=== PATIENT | male | born 1955 | race Caucasian/White ===

== ENCOUNTER 2023-12-23 08:43 | Outpatient (AMB) | payer BC, SELFPAY ==
--- NOTE | 2023-12-23 08:53 | MHC.OFFWIV ---
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 Reports Ankle swelling and Pain, but the swelling started this morning. PFSH Social History Patient Tobacco Use Status: Current everyday Tobacco user Review of Systems Const All systems reviewed & are unremarkable except as noted in HPI and below Physical Exam Vital Signs: Last Vital Signs Temp 98.0 F 12/23/23 08:57 Pulse 60 12/23/23 08:57 BP 140/82 H 12/23/23 08:57 Pulse Ox 98 12/23/23 08:57 BMI result Body Mass Index 28.5 Const General: comfortable and no acute distress Orientation/consciousness: patient oriented x3 Neuro Other: Walks with a slight limp. General: patient oriented x3, gait normal and moves all extremities Extrem Right lower extremity: edema and ankle Details: tenderness, swelling Details: diffusely, abnormal ROM Details: pain with active ROM and pain with passive ROM, laceration (Scrapped up right sheen) and ecchymosis Left lower extremity: normal to inspection and full ROM Psych Speech and movement: Normal speech and movement present Assessment & Plan Assessment & Plan (1) Right ankle injury: Code(s): S99.911A - Unspecified injury of right ankle, initial encounter Qualifiers: Encounter type: initial encounter Qualified Code(s): S99.911A - Unspecified injury of right ankle, initial encounter Plan: - Xray to r/o Fx - Air Cast right ankle - IceHot - Acetaminophen for relief (2) Cellulitis of skin: Code(s): L03.90 - Cellulitis, unspecified Plan: - Keflex for 7 days. Orders: Orders XR ankle RT min 3V Today S99.911A - Unspecified injury of right ankle, initial encounter Medications: New cephalexin 500 mg PO BID 7 days 14 caps 0RF L03.90 - Cellulitis, unspecified Coding Level of Care Code New Pt Level 4 (00216) Diagnoses Injury of right ankle, initial encounter S99.911A Encounter type: initial encounter Cellulitis of skin L03.90 Time Spent (min) 20
[2023-12-23 08:57] VITALS: BP 140/82; PULSE 60; TEMP 36.7; O2SAT 98; BMI 28.5
== END 2023-12-23 10:11 | disposition home or self-care (01) ==
PROVIDERS: Visit Provider Nurse Practitioner Family
DX: S99.911A Unspecified injury of right ankle, initial encounter (principal); L03.90 Cellulitis, unspecified
CPT/HCPCS: 99204

== ENCOUNTER 2023-12-23 09:31 | Outpatient (REF) | payer BC, SELFPAY ==
--- NOTE | ~2023-12-23 | XR_ITS ---
EXAMINATION: XR ANKLE, RIGHT CLINICAL INFORMATION: Right ankle injury. COMPARISON: None available. TECHNIQUE: AP, lateral, and mortise views of the right ankle. FINDINGS: Alignment is anatomic. No displaced fracture or dislocation. Ankle mortise is maintained. The talar dome is intact. Small plantar calcaneal spur. There is mild diffuse soft tissue swelling and edema. XR/XR ankle RT min 3V IMPRESSION: No acute bony abnormality.
== END 2023-12-23 09:32 | disposition home or self-care (01) ==
LOC: HO.HMGCX 09:31
PROVIDERS: Visit Provider Nurse Practitioner Family
DX: S99.911A Unspecified injury of right ankle, initial encounter (principal)
CPT/HCPCS: 73610

== ENCOUNTER 2023-12-27 08:49 | Outpatient (AMB) | payer BC, SELFPAY ==
--- NOTE | 2023-12-27 09:54 | AM.OFFWIN_ITS ---
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 Patient was seen in this walk-in clinic for similar and mint, was given cephalexin for cellulitis of the right ware. Patient also had right ankle x-ray which demonstrated no acute abnormalities. Patient presents today with right foot and ankle pain. Also has swelling of his right foot and ankle. He reports the swelling goes away at night and in the morning, returns when he gets up to walk around. The scrape on his right ware has erythema with no drainage. Patient denies tingling or numbness. Patient on initial exam also had elevated blood pressure. Blood pressure was retaken after 15 minutes of rest, results came back hypertensive 155/96. Patient denies symptoms of headache, dizziness, chest pain, shortness a breath. Patient does not have PCP. Patient is declining hypertensive medication at this time. [facility] Social History Patient Tobacco Use Status: Current everyday Tobacco user Review of Systems Const All systems reviewed & are unremarkable except as noted in HPI and below Denies chills and Denies fever(s) Physical Exam Vital Signs: Last Vital Signs Temp 97.2 F 12/27/23 09:55 Pulse 64 12/27/23 09:55 BP 190/90 H 12/27/23 09:55 Pulse Ox 97 12/27/23 09:55 Oxygen Delivery Method Room Air 12/27/23 09:55 BMI result Body Mass Index 28.3 Patient should continue take blood pressure measurements at home. Patient is declining blood pressure medication. Assessment & Plan Assessment & Plan (1) Cellulitis: Comment: Patient should continue taking cephalexin at home. Has been instructed to rest the extremity, rays extremity. 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 Has been educated on signs of worsening symptoms and when to report to the walk-in or when to present to the ED. Code(s): L03.90 - Cellulitis, unspecified Qualifiers: Site of cellulitis: extremity Site of cellulitis of extremity: lower extremity Laterality: right Qualified Code(s): L03.115 - Cellulitis of right lower limb Plan: Patient will also continue to measure blood pressure at home. He has been educated on signs of worsening symptoms. When to return to the walk-in or when to present to the ED Coding Level of Care Code Est Pt Level 3 (58421) Diagnoses Cellulitis of right lower extremity L03.115 Site of cellulitis: extremity Site of cellulitis of extremity: lower extremity Laterality: right Time Spent (min) 28
[2023-12-27 09:55] VITALS: BP 190/90; PULSE 64; TEMP 36.2; O2SAT 97; BMI 28.3
[2023-12-27 10:32] VITALS: BP 155/96
== END 2023-12-27 10:56 | disposition home or self-care (01) ==
PROVIDERS: Visit Provider Nurse Practitioner Primary Care
DX: L03.115 Cellulitis of right lower limb (principal)
CPT/HCPCS: 99213

== ENCOUNTER 2023-12-30 15:12 | Outpatient (AMB) | payer BC, SELFPAY ==
--- NOTE | 2023-12-30 15:22 | MHC.OFFWIV ---
Intake Vital Signs 12/30/23 15:25 Height 6 ft Weight 209 lb BMI 28.3 BP 170/82 H Blood Pressure Location Rt brachial Position Sitting Pulse 66 Pulse Source Pulse Oximeter Temp 97.7 F Temp Source Oral Pulse Oximetry (%) 97 Oxygen Delivery Method Room Air Intake Visit Reasons: Rt ankle swollen and red Intake Note: pt is here for right ankle swollen and red, completed antibiotics but still infected Patient Tobacco Use Status: Current everyday Tobacco user Allergies meperidine [From Demerol] Allergy (Mild, Verified 12/30/23 15:26) Stomach Upset Do you need a note to return to daycare/school/sports/work: No HPI HPI Comments History of Present Illness Details Patient presents for re-eval He was initially seen on 12/22 after a fall and obtained a R ankle xray which was negative At that time he was given Keflex for a would to R ware He did not having improvement so he was reevluated on 12/26 He comes today with slight improvment but concern for continual infection No fever or chills Elevation helps Keflex did not resolve it; finished whole script No numbness, tingling or weakness + edema and redness Redness improved around superior cut but continual redness to lower leg and foot No other complaints PFSH Social History Patient Tobacco Use Status: Current everyday Tobacco user Review of Systems Const Denies chills and Denies fever(s) Card Denies chest pain, Reports pedal edema, Reports leg edema and Denies dyspnea Resp Denies cough and Denies dyspnea Musc Reports joint swelling, Denies numbness and Denies tingling Skin/Breast Reports erythema Neuro Denies numbness and Denies tingling Physical Exam Vital Signs: Last Vital Signs Pulse 66 12/30/23 15:25 BP 170/82 H 12/30/23 15:25 Pulse Ox 97 12/30/23 15:25 Oxygen Delivery Method Room Air 12/30/23 15:25 BMI result Body Mass Index 28.3 General: Non-toxic, NAD. Speaking full sentences. Skin: Warm dry throughout RLE: + has scabbed vertical linear wound running along anterior/medial ware from mid ware distally to anterior ankle + surrounding erythema to mid would extending distally all the way to digits + edema RLE from mid ware, ankle and into dorsum of foot Eye: EOMI Respiratory: No respiratory distress Cardiac: RRR. DP. pulse intact. No RLE calf tenderness MSK: + full ROM R ankle. No tenderness to palpation medial/lateral malleoli RLE. Slight discomfort to palpation dorsal aspect foot over edema. Neurology: A/O. No aphasia or facial droop. Gait without abnormality Psych: Good mood and affect Assessment & Plan Assessment & Plan (1) Cellulitis of leg, right: Code(s): L03.115 - Cellulitis of right lower limb Plan: Patient seen and evaluated. Area of erythema traced Doxycycline for mrsa coverage Discussed sun exposure s/e of med Discussed elevation No vascular deficit on exam Reviewed previous xray result Will return Tuesday for recheck Discussd ER s/s that warrant eval. Patient gave verbal understanding and had no additional questions or concerns at time of discharge All questions answered Medications: New doxycycline hyclate 100 mg PO BID 14 caps 0RF Coding Level of Care Code Est Pt Level 3 (23447) Diagnoses Cellulitis of leg, right L03.115
[2023-12-30 15:25] VITALS: BP 170/82; PULSE 66; TEMP 36.5; O2SAT 97; BMI 28.3
== END 2023-12-30 16:44 | disposition home or self-care (01) ==
PROVIDERS: Visit Provider Physician Assistant
DX: L03.115 Cellulitis of right lower limb (principal)
CPT/HCPCS: 99213

== ENCOUNTER 2024-01-02 10:51 | Outpatient (AMB) | payer BC, SELFPAY ==
[2024-01-02 12:24] VITALS: BP 140/78; PULSE 62; TEMP 36.4; O2SAT 97; BMI 27.8
--- NOTE | 2024-01-02 12:24 | MHC.OFFWIV ---
Intake Vital Signs 01/02/24 12:24 Height 6 ft Weight 205 lb BMI 27.8 BP 140/78 H Blood Pressure Location Lt brachial Position Sitting Pulse 62 Pulse Source Pulse Oximeter Temp 97.5 F Temp Source Temporal Artery Scan Pulse Oximetry (%) 97 Oxygen Delivery Method Room Air Intake Visit Reasons: EP RT Ankle swollen/redness F/U Intake Note: pt is here today for ankle swollen and redness started 1 week ago Patient Tobacco Use Status: Current everyday Tobacco user Allergies meperidine [From Demerol] Allergy (Mild, Verified 01/02/24 12:27) Stomach Upset Do you need a note to return to daycare/school/sports/work: Yes HPI EP RT Ankle swollen/redness F/U HPI Details 68-year-old male presents to the office for a sick visit. Patient comes for an evaluation of his right leg. 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 Patient was seen here in started on antibiotics and anti-inflammatories. PFSH Social History Patient Tobacco Use Status: Current everyday Tobacco user Physical Exam Vital Signs: Last Vital Signs Temp 97.5 F 01/02/24 12:24 Pulse 62 01/02/24 12:24 BP 140/78 H 01/02/24 12:24 Pulse Ox 97 01/02/24 12:24 Oxygen Delivery Method Room Air 01/02/24 12:24 BMI result Body Mass Index 27.8 Extrem Other: Right leg: Compared to the previous office visit, erythema has reduced in size. Wound he is healing with black eschar the wound. Assessment & Plan Assessment & Plan (1) Cellulitis of leg, right: Code(s): L03.115 - Cellulitis of right lower limb Plan: Continue the current course of antibiotics and anti-inflammatories. Reassurance. Coding Level of Care Code Est Pt Level 3 (11882) Diagnoses Cellulitis of leg, right L03.115
== END 2024-01-02 13:06 | disposition home or self-care (01) ==
PROVIDERS: Visit Provider Internal Medicine
DX: L03.115 Cellulitis of right lower limb (principal)
CPT/HCPCS: 99213

== ENCOUNTER 2024-01-04 11:22 | Emergency (ER) | payer BC, SELFPAY ==
--- NOTE | ~2024-01-04 | US_ITS ---
EXAMINATION: US VENOUS ULTRASOUND WITH DOPPLER LOWER EXTREMITY, RIGHT CLINICAL INFORMATION: Edema and pain. COMPARISON: None available. TECHNIQUE: Ultrasound of the deep veins is performed from the hip to the calf with compression sonography and color and pulse Doppler assessment. Spectral analysis with color-flow imaging is performed. FINDINGS: There is normal venous compression and respiratory variation and augmented flow. The visualized common femoral vein, superficial femoral vein, profunda femoral vein, popliteal vein, and the trifurcation region shows no evidence of deep venous thrombosis. There is no significant popliteal fossa cyst. If the patient's symptoms persist, followup ultrasound in 5 days 7 days might be of value to exclude proximal propagation from a non-visualized calf vein. US/US venous duplex LE RT IMPRESSION: No DVT demonstrated in the right lower extremity.
[2024-01-04 11:38] VITALS: BP 211/96; PULSE 67; RESP 18; TEMP 36.6; O2SAT 98; BMI 27.8
--- NOTE | 2024-01-04 11:38 | ED_ITS ---
HPI - General Adult General Chief complaint: Wound/Laceration Stated complaint: leg infection, antibiotics not working Time Seen by Provider: 01/04/24 14:40 Source: patient Mode of arrival: ambulatory Limitations: no limitations History of Present Illness HPI narrative: 68-year-old male otherwise healthy had initial fall on the 22 of December approximately 12 days patient was started on Keflex for concern for infection redness has continued to get worse he followed up and was started on doxycycline for the outpatient note when he was seen 2 days ago the erythema had improved Related Data Previous Rx's ?Medication ?Instructions ?Recorded doxycycline hyclate 100 mg capsule 100 mg PO BID #14 caps 12/30/23 Allergies Allergy/AdvReac Type Severity Reaction Status Date / Time meperidine [From Demerol] Allergy Mild Stomach Verified 01/04/24 11:42 Upset PMFSH Social History Social History Patient Tobacco Use Status: Current everyday Tobacco user Physical Exam ED Vital Signs: Vital Signs - 24 hr 01/04/24 11:38 Temperature 98 F Pulse Rate 67 Respiratory Rate 18 Blood Pressure 211/96 H Pulse Oximetry 98 Oxygen Delivery Method Room Air BMI result Body Mass Index 27.8 Course Course Course Narrative: This is a rapid medical exam performed by Anirudh Barnett NP: Additional HPI, ROS, PE not included below will be deferred to primary provider. Patient is a 68-year-old male presenting to the ED with complaint of right lower leg pain, redness, and swelling for the past 3 weeks. Completed a course of keflex with little improvement, currently on doxycycline, 2 days left. Denies fevers. Intermittent foot swelling. Had ankle xrays which he states were negative. Large scab to anterior RLL, erythema, warmth. BP elevated in triage. Plan: labs, US Medical Decision Making Medical Decision Making MDM Narrative: Patient is feeling normal labs ultrasound was done patient is on DVT patient has only been on the doxycycline for 2 days I shared decision-making with the patient plus-minus of admission versus going home patient opted to try and go home. Differential Diagnosis Differential Diagnoses: The differential diagnosis associated with the presentation includes Cellulitis infection sepsis Consult Healthcare Provider Management of the patient was discussed with: Hospitalist Lab Data MDM Lab Attestation statement: I reviewed the patient's lab results. 01/04/24 11:55 01/04/24 11:55 Labs: Lab Results 01/04/24 Range/Units 11:55 WBC 8.2 (4.8-10.8) X10*3/uL RBC 5.26 (4.60-5.80) X10*6/uL Hgb 15.6 (14.0-18.0) g/dl Hct 46.2 (42.0-52.0) % MCV 87.8 (80.0-98.0) fL MCH 29.7 (27.0-33.0) pg MCHC 33.8 (31.0-36.0) g/dl RDW 13.6 (11.0-16.0) % Plt Count 240 (160-400) X10*3/uL MPV 10.5 (9.4-12.4) fL Immature Gran % (Auto) 0.4 (0.0-0.4) % Neut % (Auto) 64.4 (45-73) % Lymph % (Auto) 24.7 (20-40) % [place] % (Auto) 8.6 (2-11) % Eos % (Auto) 1.0 (0-4) % Baso % (Auto) 0.9 (0-2) % Lymph # (Auto) 2.0 (1.2-4.9) X10*3/uL [place] # (Auto) 0.7 (0.1-1.2) X10*3/uL Eos # (Auto) 0.1 (0.0-0.4) X10*3/uL Baso # (Auto) 0.1 (0.0-0.2) X10*3/uL Abs Immat Gran (auto) 0.03 (0.00-0.03) X10*3/uL Absolute Neuts (auto) 5.3 (2.0-8.3) x10*3/uL Absolute Nucleated RBC 0.000 (0.0-0.012) X10*3/uL Nucleated RBC % (auto) 0.0 (0.0-0.2) /100WBC ESR 2 (0-15) MM/HR Sodium 141 (135-145) mmol/L Potassium 4.3 (3.3-5.1) mmol/L Chloride 106 (96-108) mmol/L Carbon Dioxide 27 (22-29) mmol/L Anion Gap 12 (12-20) BUN 21 H (9-16) mg/dL Creatinine 0.86 (0.5-1.4) mg/dL Estim Creat Clear Calc 91.4 Estimated GFR > 60 Random Glucose 97 (60-115) mg/dL Calcium 9.4 (8.4-10.2) mg/dL Total Bilirubin 0.4 (0.0-1.0) mg/dL AST 16 (5-37) U/L ALT 17 (0-40) U/L Alkaline Phosphatase 106 (39-117) U/L C-Reactive Protein 0.41 (< or = 0.50) mg/dL Total Protein 7.1 (6.5-8.0) g/dL Albumin 4.2 (3.5-5.0) g/dL Independent Interpretation I performed an independent interpretation of an: Ultrasound Radiology Impression Discussion of test interpretation with radiology: I have reviewed the radiologist's reading. External Record Review External record reviewed: Inpatient record, Office record and Outpatient record Prescription Management I considered prescription management with: Antibiotic Discharge Plan Discharge Clinical Impression: Cellulitis of leg, right, Edema leg Patient Disposition: Home, Self-Care Instructions: Cellulitis (DC), Leg Edema (ED) Additional Instructions: You were seen today in the emergency department for right leg swelling and healing infection. You had labs and ultrasound done he do not have a blood clot your labs do not show any signs of sepsis. Please try to use tighter socks or compression stockings as well as elevating the leg and doing leg exercises we talked about to decrease swelling. If you have any other concerns worsening redness streaking please return to emergency department. Prescriptions: No Action doxycycline hyclate 100 mg capsule 100 mg PO BID Qty: 14 0RF Stand Alone Forms: Work/School Release Print Language: Welsh
[2024-01-04 11:59] LABS: MANUAL DIFF FLAG NO
[2024-01-04 12:00] LABS: Basophils Absolute Auto 0.1 X10*3/uL (0.0-0.2); Basophils Percent Auto 0.9 % (0-2); Eosinophils Absolute Auto 0.1 X10*3/uL (0.0-0.4); Hematocrit 46.2 % (42.0-52.0); Hemoglobin 15.6 g/dl (14.0-18.0); Imm Gran Abs Auto 0.03 X10*3/uL (0.00-0.03); Imm Gran Pct Auto 0.4 % (0.0-0.4); Lymphocytes Percent Auto 24.7 % (20-40); Mean Corpuscular HGB Conc 33.8 g/dl (31.0-36.0); Mean Corpuscular Hemoglobin 29.7 pg (27.0-33.0); Mean Corpuscular Volume 87.8 fL (80.0-98.0); Mean Platelet Volume 10.5 fL (9.4-12.4); Monocytes Absolute Auto 0.7 X10*3/uL (0.1-1.2); Monocytes Percent Auto 8.6 % (2-11); Neutrophils Absolute Auto 5.3 x10*3/uL (2.0-8.3); Neutrophils Percent Auto 64.4 % (45-73); Platelet Count 240 X10*3/uL (160-400); Red Blood Count 5.26 X10*6/uL (4.60-5.80); Red Cell Distribution Width 13.6 % (11.0-16.0); White Blood Count 8.2 X10*3/uL (4.8-10.8)
[2024-01-04 12:12] LABS: Alanine Aminotransferase 17 U/L (0-40); Albumin Level 4.2 g/dL (3.5-5.0); Alkaline Phosphatase 106 U/L (39-117); Anion Gap 12 (12-20); Aspartate Amino Transferase 16 U/L (5-37); Bilirubin Total 0.4 mg/dL (0.0-1.0); Blood Urea Nitrogen 21 mg/dL (9-16); C Reactive Protein 0.41 mg/dL (< or = 0.50); Calcium 9.4 mg/dL (8.4-10.2); Carbon Dioxide 27 mmol/L (22-29); Chloride 106 mmol/L (96-108); Creatinine Clr Calc Pharmacy 91.4; Estimated Glomerular Filt Rate > 60; Glucose Random 97 mg/dL (60-115); Potassium 4.3 mmol/L (3.3-5.1); Sodium 141 mmol/L (135-145); Total Protein 7.1 g/dL (6.5-8.0)
[2024-01-04 12:40] LABS: Erythrocyte Sedimentation Rate 2 MM/HR (0-15)
[2024-01-04 15:16] VITALS: BP 216/98; PULSE 62; RESP 18; TEMP 36.8; O2SAT 97
== END 2024-01-04 15:16 | disposition home or self-care (01) ==
PROVIDERS: Registered Nurse Emergency; Emergency Provider Student in an Organized Health Care Education/Training Program
DX: L03.115 Cellulitis of right lower limb (principal); R60.0 Localized edema; M79.604 Pain in right leg
CPT/HCPCS: 36415; 80053; 85025; 85652; 86140; 93971; 99282; 99283; 99284

== ENCOUNTER 2024-03-05 12:44 | Outpatient (AMB) | payer BC, SELFPAY ==
--- NOTE | 2024-03-05 13:42 | AM.OFFWIN_ITS ---
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 He notes he suffered COVID infection 2 weeks ago which has since recovered from but he did have significant cough and congestion with illness. He notes the blockage she has been since then. Denies other symptoms such as sore throat difficulty swallowing or ear pain. PFSH Social History Patient Tobacco Use Status: Current everyday Tobacco user Review of Systems Const Reports as per HPI and Reports no additional complaints ENT Reports no additional complaints and Reports as per HPI Card Reports as per HPI and Reports no additional complaints Resp Reports as per HPI and Reports no additional complaints Neuro Reports no additional complaints and Reports as per HPI Physical Exam Vital Signs: Last Vital Signs Temp 98.2 F 03/05/24 13:43 Pulse 64 03/05/24 13:43 BP 126/82 03/05/24 13:43 Pulse Ox 98 03/05/24 13:43 Oxygen Delivery Method Room Air 03/05/24 13:43 BMI result Body Mass Index 27.8 Const General: cooperative, comfortable and no acute distress Orientation/consciousness: patient oriented x3 HEENT Head: Yes normal to inspection Ears: Abnormal EAC present cerumen impaction on the right Neck Neck: Yes normal visual inspection, Yes full ROM and Yes no lymphadenopathy Resp Effort & Inspection: normal respiratory effort Auscultation: clear to auscultation bilaterally Cardio Rate: regular rate Rhythm: regular rhythm Heart sounds: S1 normal heart sound present and S2 normal heart sound present Neuro General: patient oriented x3 Office Procedures Cerumen Removal Details: Performed by MARCOS Trevizo. I personally did follow-up exam. From which ear canal was the cerumen removed: right Removal: irrigation Notes: patient tolerated procedure well [id number] Irrigation/Lavage Assessment & Plan Assessment & Plan (1) Cerumen impaction: Code(s): H61.20 - Impacted cerumen, unspecified ear Qualifiers: Laterality: right Qualified Code(s): H61.21 - Impacted cerumen, right ear Plan: Cerumen successfully removed via lavage. There is some irritation of the canal skin postprocedure. Patient notes restored hearing and feeling his ears on block now. Return to clinic any concern. Coding Level of Care Code Est Pt Level 3 (44027) Diagnoses Impacted cerumen of right ear H61.21 Laterality: right CPT Codes Office Procedure - CPT: 63836-Hpi Irrigation/Lavage ([id number])
[2024-03-05 13:43] VITALS: BP 126/82; PULSE 64; TEMP 36.8; O2SAT 98; BMI 27.8
== END 2024-03-05 15:03 | disposition home or self-care (01) ==
PROVIDERS: Visit Provider Physician Assistant
DX: H61.21 Impacted cerumen, right ear (principal)
CPT/HCPCS: 69209; 99213

== ENCOUNTER 2025-05-17 07:11 | Outpatient (AMB) | payer BC, SELFPAY ==
--- NOTE | 2025-05-17 07:12 | AM.OFFWIN_ITS ---
Intake Vital Signs 05/17/25 07:14 Height 6 ft Weight 212 lb BMI 28.7 BP 190/80 H Blood Pressure Location Lt brachial Position Sitting Pulse 76 Pulse Source Pulse Oximeter Temp 98.6 F Temp Source Oral Pulse Oximetry (%) 96 Oxygen Delivery Method Room Air Intake Visit Reasons: EP-cough, running nose Intake Note: Pt is here today c/o cough and nasal congestion Patient Tobacco Use Status: Current everyday Tobacco user Allergies meperidine (From Demerol) Allergy (Mild, Verified 05/17/25 07:14) Stomach Upset HPI HPI Comments History of Present Illness Details History - The patient is a 70-year-old male pres enting with symptoms of a cough and runny nose for 5 days. - The patient reports a history of smoki ng for 50 years and experiences wheezing, particularly in cold air. - The patient experienced chills and col d-like symptoms, leading to 3 missed days of work. - He denies fever but reports wheezing a nd a cough that worsens in cold air. - Denies ear pain or sinus pain. - He has not been diagnosed with asthma or COPD formally but acknowledges the likelihood of COPD due to his smoking history. Does not see a doctor regularly. - The patient has a history of elevated blood pressure, with a recent measurement of 190/80 mmHg. - He denies headaches, chest pain or diz ziness. - He has not been under regular medical care for 15 years and does not take any antihypertensive medications. Review of Systems - General: Reports chills, denies fever. - Respiratory: Reports wheezing and coug h, denies dyspnea. - Cardiovascular: Denies chest pain, diz ziness, or lightheadedness. - Neurological: Denies headaches. All systems reviewed and are unremarkable except as noted in HPI Physical Exam General: Cooperative, healthy appearing, comfortable and no acute distress Orientation/consciousness: Patient oriented x3 Limitations: No limitations Head: Normal to inspection Ears: Hearing grossly normal bilaterally, external ears normal, cerumen bilaterally, TMs visible and normal bilat Nose: Normal external nose present, Normal nares present and No nasal discharge present Face and sinus: Normal facial exam and Yes sinuses nontender Mouth: Normal oral and palatal mucosa present and moist mucous membranes Throat: Yes tonsils normal, Yes uvula midline. Posterior oropharynx erythema, no exudates Eyes: Appearance normal, both eyes and all related structures Neck: Normal visual inspection, full ROM Respiratory: exp wheezes throughout. Normal respiratory effort, able to speak in complete sentences, actively coughing, no respiratory distress, not tachypneic, no tripod positioning and no use of accessory muscles. Wheezing present Cardiovascular: Regular rate and rhythm. Normal S1 and S2 Skin: No rashes or lesions noted Neuro: Patient oriented x3 Extremities: Normal to inspection and Yes no clubbing, cyanosis or edema PFSH Social History Patient Tobacco Use Status: Current everyday Tobacco user Physical Exam Vital Signs: Last Vital Signs Temp 98.6 F 05/17/25 07:14 Pulse 76 05/17/25 07:14 BP 190/80 H 05/17/25 07:14 Pulse Ox 96 05/17/25 07:14 Oxygen Delivery Method Room Air 05/17/25 07:14 BMI result Body Mass Index 28.7 Assessment & Plan Assessment & Plan (1) Lower respiratory infection (e.g., bronchitis, pneumonia, pneumonitis, pulmonitis): Code(s): J22 - Unspecified acute lower respiratory infection Plan: Patient was informed and verbally consented to the use of an ambient scribe for clinic note documentation during this visit. - BP extremely elevated repeat was 210/100, asymptomatic, did recommend he go to the ED to be started on medications but he refused, signed AMA form. HE will make an appt with [facility] PCP, sent message to her to move appt up to [facility] once he makes it. - Pt well appearing and PE remarkable for exp wheezes throughout. - Sent viral panel - Prescribed an inhaler for use as needed for shortness of breath. - Initiated prednisone for five days to reduce inflammation and improve breathing. - Recommended symptomatic treatment with Mucinex and allergy medication. - Provided a work note for three days off due to illness. (2) Elevated blood pressure reading without diagnosis of hypertension: Code(s): R03.0 - Elevated blood-pressure reading, without diagnosis of hypertension Plan: - Advised to establish care with a primary care provider for management of hypertension. Messaged PCP he would like to see to ask for an appt [facility] as he refuses to go to the ED. Signed AMA form. - Discussed the importance of starting antihypertensive medication to prevent complications such as stroke. Advised he is at a VERY high risk for a stroke right now. He acknowledged this and still refused to go to the ED. Orders: Orders Resp Pathogen Panel - [facility] Today J06.9 - Acute upper respiratory infection, unspecified Coding Level of Care Code New Pt Level 4 (64205) Diagnoses Lower respiratory infection (e.g., bronchitis, pneumonia, pneumonitis, pulmonitis) J22 Elevated blood pressure reading without diagnosis of hypertension R03.0
[2025-05-17 07:14] VITALS: BP 190/80; PULSE 76; TEMP 37; O2SAT 96; BMI 28.7
== END 2025-05-17 07:47 | disposition home or self-care (01) ==
PROVIDERS: Visit Provider Physician Assistant
DX: J22 Unspecified acute lower respiratory infection (principal); R03.0 Elevated blood-pressure reading, without diagnosis of hypertension

== ENCOUNTER 2025-05-17 07:11 | Outpatient (REF) | payer BC, SELFPAY ==
[2025-05-17 15:50] LABS: Chlamydia pneumoniae PCR Not Detected (Not Detect.); Coronavirus 229E PCR Not Detected (Not Detect.); Coronavirus HKU1 PCR Not Detected (Not Detect.); Coronavirus NL63 PCR Not Detected (Not Detect.); Coronavirus OC43 PCR Not Detected (Not Detect.); RSV PCR Not Detected (Not Detect.); Rhino/Enterovirus PCR Detected (Not Detect.)
[2025-05-17 15:57] LABS: Influenza A H1 PCR Not Detected (Not Detect.); Influenza A H1-2009 PCR Not Detected (Not Detect.); Influenza A H3 PCR Not Detected (Not Detect.); SARS-CoV-2 PCR Not Detected (Not Detect.)
== END 2025-05-17 07:12 | disposition home or self-care (01) ==
LOC: HO.LAB 07:11
PROVIDERS: Physician Assistant
DX: J22 Unspecified acute lower respiratory infection (principal); R03.0 Elevated blood-pressure reading, without diagnosis of hypertension; F17.200 Nicotine dependence, unspecified, uncomplicated; R05.9 Cough, unspecified; R09.81 Nasal congestion; R09.89 Other specified symptoms and signs involving the circulatory and respiratory systems; Z53.29 Procedure and treatment not carried out because of patient's decision for other reasons
CPT/HCPCS: 87633

== ENCOUNTER 2025-05-21 11:27 | Inpatient (IN) | payer BC, SELFPAY ==
[2025-05-21] VITALS (7 sets, daily range): BP systolic 114–152; BP diastolic 61–116; PULSE 52–120; RESP 16–18; TEMP 36.6; O2SAT 93–98; BMI 28.6
--- NOTE | ~2025-05-21 | CT_ITS ---
EXAMINATION: CT CHEST ANGIOGRAPHY WITH IV CONTRAST INDICATION: new onset afib w/ RVR, chest pain COMPARISON: There are no prior studies available for comparison. TECHNIQUE: Helical CT scan of the chest was performed following administration of intravenous contrast (65 mL Omnipaque 350). The contrast bolus was timed to optimally opacify the pulmonary arteries. Thin sections were obtained through the pulmonary arteries. Coronal and sagittal reformatted images were generated. 3D/MIP reconstructed images are also obtained and reviewed. This CT exam was performed with one or more of the following dose reduction techniques: automated exposure control, adjustment of the mA and/or kV according to patient size, use of iterative reconstruction technique. DLP: 08 mGy-cm CHEST: THYROID: The thyroid gland is unremarkable. PULMONARY ARTERIES: No intraluminal filling defects are identified within the pulmonary arteries to suggest pulmonary emboli. Pulmonary arteries are upper normal in size, main pulmonary artery measuring 3 cm. LUNGS: There are scattered areas of bronchial wall thickening. No evidence of pneumonia or pulmonary edema. MEDIASTINUM: There is no mediastinal lymphadenopathy. RAND: There is no hilar lymphadenopathy. CARDIOVASCULATURE: Heart is slightly enlarged. There is no pericardial effusion. No evidence of right heart strain. The thoracic aorta is normal in caliber. DEGREE OF CORONARY CALCIFICATION: none PLEURA: There is no pleural effusion. No pneumothorax. MAIN AIRWAYS: The mainstem bronchi and proximal branches are patent. AXILLA: There is no axillary lymphadenopathy. UPPER ABDOMEN: No reflux of contrast into the liver. Mild diverticulosis of the colon. BONES AND SOFT TISSUES: Degenerative changes of the spine. CT/CT angio chest PE protocol IMPRESSION: No evidence of pulmonary emboli. Slightly enlarged heart. Scattered areas of mild bronchial wall thickening. No evidence of pneumonia or pulmonary edema. Electronically signed by: Gracia Dailey MD 05/21/2025 01:36 PM EDT
--- NOTE | 2025-05-21 11:32 | ECG_ITS ---
Test Reason : CP,IRREG HEARTBEAT Blood Pressure : */* mmHG Vent. Rate : 112 BPM Atrial Rate : * BPM P-R Int : * ms QRS Dur : 96 ms QT Int : 310 ms P-R-T Axes : * -23 53 degrees QTcB Int : 423 ms Atrial fibrillation with rapid ventricular response Minimal voltage criteria for LVH, may be normal variant ( [place] product ) Nonspecific ST abnormality Abnormal ECG No previous ECGs available Referred By: Generic ED Physician Electronically Signed By: ODILON JUNIOR MD
--- NOTE | 2025-05-21 11:41 | ED_ITS ---
HPI - Chest Pain General Chief Complaint: Chest Pain Stated Complaint: lt side chest/arm pain HR 160-210 Dilt given Time Seen by Provider: 05/21/25 11:33 Source: patient and EMS Mode of arrival: EMS Limitations: no limitations History of Present Illness ED Provider: Magda Mascorro PA-C HPI narrative: 70 with no significant medical history (does not go to doctor), active smoker who presents to the ER from home via EMS for evaluation of acute onset of left- sided chest pressure and left arm pain that woke him up out of sleep at 09:00 today. Patient states it initially started with left upper arm pain, he thought he slept wrong on his arm. When he got up he noticed he had pressure in the left side of his chest, 7/10, nonradiating. His symptoms worsened and he called 911. He denied any associated shortness of breath, diaphoresis, nausea, abdominal pain. EMS reports his heart rates were 180-220 in rapid AFib. An IV was established and he was given diltiazem 22.5 mg IV x1. His heart rates improved to the 120s. His blood pressure remained stable with systolics 110- 140. He was not hypoxic. He states he recently went to the urgent care clinic last week for nasal congestion, they prescribed him new inhalers for wheezing and they told him his blood pressure was high. He is not on blood pressure medication. He does not have a primary care physician. On arrival to the ER patient's heart rates are in the 120s, he is feeling better, no longer having arm pain. Mild chest pressure persists. MD complaint: other (Chest pressure, left arm pain) Onset (ago): minute(s) Timing of current episode: constant Prior episodes: No Onset: during rest Pain location: left chest Pain radiation: left arm Severity: moderate Pain scale (0-10): 7 Quality: heaviness Relieving factors: medication-other (aspirin and diltiazem) Exacerbating factors: nothing Context: recent illness Associated symptoms: cough Treatment prior to arrival: aspirin, oxygen and other (diltiazem) Risk Factors Coronary artery disease risk factors: smoking history and hypertension Related Data Previous Rx's ?Medication ?Instructions ?Recorded albuterol sulfate 90 mcg/actuation 2 puff inhalation Q 6H PRN 05/17/25 aerosol inhaler shortness of breath or wheez ing or cough #8.5 grams prednisone 50 mg tablet 50 mg PO QAM #5 tabs 5 Allergies Allergy/AdvReac Type Severity Reaction Status Date / Time meperidine (From Demerol) Allergy Mild Stomach Verified 05/21/25 11:40 Upset Review of Systems 2 Review of Systems: Yes all other systems are reviewed and are negative [facility] Social History Social History Patient Tobacco Use Status: Current everyday Tobacco user Smoked in Last 30 Days: Yes Use of substances other than those prescribed or required for medical reasons: No Advance Directives: No Advance Directives Information Provided: Yes Physical Exam 2 Exam: Exam: Appearance: Alert. Oriented X3. No acute distress. Head: normocephalic, atraumatic. Eyes: Pupils equal, round and reactive to light. ENT: Pharynx normal. No tonsillar swelling or exudate. Neck: Normal inspection. Neck supple. CVS: Irregularly irregular, rapid rate, heart rate 110. Pulses normal. Respiratory: No respiratory distress. Breath sounds with end expiratory wheezes, faint. Speaking in complete sentences Abdomen: Soft and nontender. +BS x4 Skin: Skin warm and dry. Normal skin color. Normal skin turgor. No rashes. Extremities: No lower extremity edema. No joint swelling. Negative Homans sign Neuro/psych: Oriented X 3. No motor deficit. No sensory deficit. CN II-XII intact. Normal speech and cognition. Vital Signs: Vital Signs: Last Vital Signs Temp 97.9 F 05/21/25 11:35 Pulse 100 05/21/25 14:21 Resp 16 05/21/25 14:21 BP 143/71 H 05/21/25 14:21 Pulse Ox 93 05/21/25 14:21 O2 Del Method Room Air 05/21/25 14:21 O2 Flow Rate 96 05/21/25 11:59 BMI result Body Mass Index 28.6 Medications Administered Discontinued Medications Generic Name Dose Route Start Last Admin Trade Name Freq PRN Reason Stop Dose Admin Lactated Ringer's 1,000 mls @ 999 mls/hr 05/21/25 11:45 05/21/25 12:55 Lr IV 05/21/25 12:45 Infused .Q1H1M GETACHEW Infusion Iohexol 100 ml 05/21/25 13:15 10/21/25 13:16 Iohexol 350 Mg/Ml 100 Ml Infus..Btl IV 05/21/25 13:16 65 ml ONCE ONE Administration Metoprolol Tartrate 25 mg 05/21/25 11:59 05/21/25 12:06 Metoprolol Tartrate 25 Mg Tablet PO 05/21/25 12:00 25 mg ONCE ONE Administration Protocol Medical Decision Making Medical Decision Making [facility] Narrative: 70 yo male presents to the ER for evaluation of left sided chest pressure and left arm pain that woke him up out of sleep. Heart rates as high as 220 per EMS. He was given diltiazem with improvement. No known cardiac history, he admits to not having any medical follow-up. He is an active smoker. On arrival to the ER he has heart rates 100-120, blood pressure is stable. Not hypoxic. He does have expiratory wheezes consistent with a likely underlying doses of COPD. Given his new onset of AFib he CTA was done to rule out PE, this showed a slightly enlarged heart, no pulmonary emboli, scattered areas of mild bronchial wall thickening without pneumonia or pulmonary edema. His proBNP was 400s. Troponin negative. He was given PO lopressor 25 mg and HR remained 90-110s. BP stable. HR up to 130s at times. additional PO lopressor and IV lopressor ordered. he is feeling better. given his presentation and lack of follow up in the community, will plan to admit for further management of new onset rapid afib. he is agreeable to admission. Dr. Guevara from Cardiology notified --> recommending cardizem drip, eliquis and NPO after midnight Differential Diagnosis Differential Diagnoses: The differential diagnosis associated with the presentation includes New onset rapid AFib, SVT, atrial tachyarrhythmia, pulmonary embolism, ACS Admission/Observation Consideration of admission/observation: Escalation of care including admission/observation considered Consult Healthcare Provider Management of the patient was discussed with: Hospitalist and Supervisor [employer] Dr. Guevara Cardiology Lab Data [facility] Lab Attestation statement: I reviewed the patient's lab results. 05/21/25 11:51 05/21/25 11:51 Labs: Lab Results 05/21/25 05/21/25 05/21/25 Range/Units 11:51 12:09 13:02 WBC 9.3 (4.8-10.8) X10*3/uL RBC 5.33 (4.60-5.80) X10*6/uL Hgb 15.3 (14.0-18.0) g/dl Hct 45.4 (42.0-52.0) % MCV 85.2 (80.0-98.0) fL MCH 28.7 (27.0-33.0) pg MCHC 33.7 (31.0-36.0) g/dl RDW 13.1 (11.0-16.0) % Plt Count 238 (160-400) X10*3/uL MPV 10.7 (9.4-12.4) fL Immature Gran % (Auto) 0.3 (0.0-0.4) % Neut % (Auto) 58.1 (45-73) % Lymph % (Auto) 30.1 (20-40) % [place] % (Auto) 9.1 (2-11) % Eos % (Auto) 1.9 (0-4) % Baso % (Auto) 0.5 (0-2) % Lymph # (Auto) 2.8 (1.2-4.9) X10*3/uL [place] # (Auto) 0.9 (0.1-1.2) X10*3/uL Eos # (Auto) 0.2 (0.0-0.4) X10*3/uL Baso # (Auto) 0.1 (0.0-0.2) X10*3/uL Abs Immat Gran (auto) 0.03 (0.00-0.03) X10*3/uL Absolute Neuts (auto) 5.4 (2.0-8.3) x10*3/uL Absolute Nucleated RBC 0.000 (0.0-0.012) X10*3/uL Nucleated RBC % (auto) 0.0 (0.0-0.2) /100WBC Sodium 142 (135-145) mmol/L Potassium 3.3 D (3.3-5.1) mmol/L Chloride 110 H (96-108) mmol/L Carbon Dioxide 25 (22-29) mmol/L Anion Gap 10 L (12-20) BUN 22 H (9-16) mg/dL Creatinine 0.82 (0.5-1.4) mg/dL Estim Creat Clear Calc 102.0 Estimated GFR > 60 Random Glucose 128 H (60-115) mg/dL Lactic Acid 1.3 (0.5-2.0) mmol/L Calcium 8.3 L D (8.4-10.2) mg/dL Magnesium 2.2 (1.6-2.6) mg/dL Total Bilirubin 0.3 (0.0-1.0) mg/dL Direct Bilirubin 0.1 (0.0-0.5) mg/dL AST 29 (5-37) U/L ALT 29 (0-40) U/L Alkaline Phosphatase 102 (39-117) U/L Troponin I High Sens 13.0 (<3.5-35.0) ng/L NT-Pro-B Natriuret Pep 468.5 H (<300) pg/mL Total Protein 6.6 (6.5-8.0) g/dL Albumin 4.1 (3.5-5.0) g/dL TSH 3.78 (0.32-4.0) uIU/mL Urine Color Yellow Urine Appearance Clear Urine pH 7.0 (5.0-9.0) Ur Specific [place] <= 1.005 (1.005-1.025) Urine Protein Negative (Neg-Trace) mg/dL Urine Glucose (UA) Negative (Negative) mg/dL Urine Ketones Negative (Negative) mg/dL Urine Blood Negative (Negative) Urine Nitrite Negative (Negative) Ur Leukocyte Esterase Negative (Negative) Urine Opiates Screen Not Detected (Not Detect) Ur Buprenorphine Scrn Not Detected (Not Detect) ng/mL Ur Oxycodone Screen Not Detected (Not Detect) ng/mL Urine Methadone Screen Not Detected (Not Detect) ng/mL Urine Fentanyl Screen Not Detected (Not Detect) Ur Barbiturates Screen Not Detected (Not Detect) Ur Phencyclidine Scrn Not Detected (Not Detect) Ur Amphetamines Screen Not Detected (Not Detect) U Benzodiazepines Scrn Not Detected (Not Detect) Urine Cocaine Screen Not Detected (Not Detect) U Marijuana (THC) Screen Not Detected (Not Detect) Ethyl Alcohol < 10 mg/dL COVID-19 (RIDDHI) Negative (Negative) COVID-19 Clin Com See Note Influenza Type A (TIAGO) Negative (Negative) Influenza Type B (TIAGO) Negative (Negative) Influenza A & B Note See Note Independent Interpretation I performed an independent interpretation of an: EKG and CT Scan Interpretation: EKG with atrial fibrillation with rapid ventricular response, ventricular rate 112 beats per minute, peaked T-waves in lead V3 and V4. No ST segment elevations or depressions CTA without any evidence of central PE, no pericardial effusion, no significant infiltrate Radiology Impression Discussion of test interpretation with radiology: I have reviewed the radiologist's reading. Independent Historian Clinical information obtained from an independent historian. History obtained from or confirmed by: EMS External Record Review External record reviewed: Prior outpatient labs Prescription Management I considered prescription management with: Other (anticoagulation, BB, CCB) Chronic Conditions Patient?s care impacted by: Hypertension (untreated) Social Determinants Patient?s care significantly limited by Social Determinants of Health including: Problems related to primary support group (no PCP) Critical Care Time Critical Care Time Critical Care Time: Yes Total Critical Care Time: 39 Attestation: I have personally provided critical care time exclusive of time spent on separately billable procedures. Time includes review of lab data, radiology results, discussion with consultants, and monitoring for potential decompensation. Intervention performed as documented. Discharge Plan Discharge Clinical Impression: New onset atrial fibrillation Patient Disposition: Admitted As Inpatient Print Language: Croatian
[2025-05-21] MEDS: Lactated Ringers 1,000 ML 999 ML IV (11:44)
[2025-05-21 11:58] LABS: MANUAL DIFF FLAG NO
[2025-05-21 12:16] LABS: Hematocrit 45.4 % (42.0-52.0); Hemoglobin 15.3 g/dl (14.0-18.0); Imm Gran Abs Auto 0.03 X10*3/uL (0.00-0.03); Imm Gran Pct Auto 0.3 % (0.0-0.4); Lymphocytes Absolute Auto 2.8 X10*3/uL (1.2-4.9); Mean Corpuscular HGB Conc 33.7 g/dl (31.0-36.0); Mean Corpuscular Hemoglobin 28.7 pg (27.0-33.0); Mean Corpuscular Volume 85.2 fL (80.0-98.0); NRBC Abs Auto 0.000 X10*3/uL (0.0-0.012); NRBC Pct Auto 0.0 /100WBC (0.0-0.2); Platelet Count 238 X10*3/uL (160-400); Red Blood Count 5.33 X10*6/uL (4.60-5.80); White Blood Count 9.3 X10*3/uL (4.8-10.8)
[2025-05-21 12:24] LABS: Troponin-I High Sensitivity 13.0 ng/L (<3.5-35.0)
[2025-05-21 12:26] LABS: NT Pro B Type Natriuretic Pept 468.5 pg/mL (<300)
[2025-05-21 12:28] LABS: Alanine Aminotransferase 29 U/L (0-40); Albumin Level 4.1 g/dL (3.5-5.0); Alkaline Phosphatase 102 U/L (39-117); Anion Gap 10 (12-20); Aspartate Amino Transferase 29 U/L (5-37); Blood Urea Nitrogen 22 mg/dL (9-16); Calcium 8.3 mg/dL (8.4-10.2); Carbon Dioxide 25 mmol/L (22-29); Chloride 110 mmol/L (96-108); Creatinine Clr Calc Pharmacy 102.0; Estimated Glomerular Filt Rate > 60; Magnesium 2.2 mg/dL (1.6-2.6); Potassium 3.3 mmol/L (3.3-5.1); Sodium 142 mmol/L (135-145); Total Protein 6.6 g/dL (6.5-8.0)
[2025-05-21 12:32] LABS: IDNOW Serial# 08D9AD1C; Influenza B2 Negative (Negative)
[2025-05-21 12:38] LABS: COVID-19 Test Negative (Negative); IDNOW Serial# 6674DD1D
[2025-05-21 13:10] LABS: Appearance Urine Clear; Glucose Urine UA Negative (Negative); PH 7.0 (5.0-9.0); Specific Gravity - Urine <= 1.005 (1.005-1.025)
[2025-05-21] MEDS: iohexoL 350 MG/ML 100 ML INFUS..BTL IV (13:16)
[2025-05-21 13:18] LABS: Cannabinoid Screen Urine Not Detected (Not Detect)
--- NOTE | 2025-05-21 14:46 | PM.IMHP ---
History of Present Illness Date of Service: 05/21/25 Chief Complaint: Left-sided chest pain Patient is a 70-year-old male with PMH rather unknown/undiagnosed as the patient has not visited a physician in the past 10 years(by choice) after 1 bad encounter. Patient reports having waking up last night with left-sided chest pain with radiation to the anterior chest in the left arm, persistent intermittent and like a heavy feeling in his chest. He then decided that he likely needs help as he waited it out and it did not go away. He denies any SOB/diaphoresis, nausea, vomiting, lightheadedness. His prior records/urgent Care report he had a rhinovirus a few days who. Which is likely also the inciting event. In the ED workup revealed new onset AFib with RVR with a heart rate in the 180-200 (likely chronic) with poor response to rate-controlling medications (120s), with blood pressure holding. Daughter and son at the bedside during this entire encounter. EKG demonstrated AFib with RVR, no ST elevations. CTA negative for any PE, pericardial effusion or infiltrate. Cardiology was consulted and he was initially to be started on diltiazem drip however the patient self reverted after receiving loading dose of diltiazem. He was started on Eliquis for anticoagulation, rate control medication to be started tomorrow per Cardiology Toprol-XL (have not initiated as he did appears to be on sinus bradycardia with a heart rate in the 50s). TTE has been ordered, monitored on telemetry, negative troponin. Hence we repeated EKG to record a sinus rhythm which she was noted to have sinus bradycardia with a rate in the 50s. Remained hemodynamically stable with a SBP in the on 10s to 120s throughout the entire interaction. Patient is being admitted for further medical management of new onset AFib with RVR necessitating further medical management. Review of Systems Review of Systems: Yes all other systems are reviewed and are negative PMFSH Social History Patient Tobacco Use Status: Current everyday Tobacco user Smoked in Last 30 Days: Yes Use of substances other than those prescribed or required for medical reasons: No Advance Directives: No Advance Directives Information Provided: Yes Nutrition Risks: No Nutritional Risk Meds Allergies Allergy/AdvReac Type Severity Reaction Status Date / Time meperidine (From Demerol) Allergy Mild Stomach Verified 05/21/25 11:40 Upset Active Medications: Current Medications Metoprolol Tartrate (Metoprolol Tartrate 5 Mg/5 Ml Vial) 5 mg IVPUSH ONCE ONE; Protocol Stop: 05/21/25 14:46 Home Medications ?Medication ?Instructions ?Recorded ?Confirmed ?Last Taken ?Type prednisone 50 mg tablet 50 mg PO DAILY 05/21/25 05/21/25 05/20/25 History Physical Exam Vital Signs and Narrative: Vital Signs: Last Vital Signs Temp 97.9 F 05/21/25 11:35 Pulse 100 05/21/25 14:21 Resp 16 05/21/25 14:21 BP 143/71 H 05/21/25 14:21 Pulse Ox 93 05/21/25 14:21 O2 Del Method Room Air 05/21/25 14:21 O2 Flow Rate 96 05/21/25 11:59 BMI result Body Mass Index 28.6 General: AOx3, no acute distress, morbid obesity Resp: Mild bilateral crackles/rhonchi, not hypoxic on room air at the time of my examination CVS: Sinus bradycardia GI: +BS, NT, no distention Skin: Warm, dry Neuro:Motor grossly intact bilaterally Extremities: No edema Psych: Appropriate affect Results Labs 05/21/25 11:51 05/21/25 11:51 Labs: Laboratory Results - last 24 hr 05/21/25 05/21/25 05/21/25 11:51 12:09 13:02 MCV 85.2 MCH 28.7 MCHC 33.7 RDW 13.1 Plt Count 238 MPV 10.7 Immature Gran % (Auto) 0.3 Neut % (Auto) 58.1 Lymph % (Auto) 30.1 [place] % (Auto) 9.1 Eos % (Auto) 1.9 Baso % (Auto) 0.5 Lymph # (Auto) 2.8 [place] # (Auto) 0.9 Eos # (Auto) 0.2 Baso # (Auto) 0.1 Abs Immat Gran (auto) 0.03 Absolute Neuts (auto) 5.4 Absolute Nucleated RBC 0.000 Nucleated RBC % (auto) 0.0 Anion Gap 10 L Estim Creat Clear Calc 102.0 Estimated GFR > 60 Random Glucose 128 H Lactic Acid 1.3 Calcium 8.3 L D Magnesium 2.2 Total Bilirubin 0.3 Direct Bilirubin 0.1 AST 29 ALT 29 Alkaline Phosphatase 102 Troponin I High Sens 13.0 NT-Pro-B Natriuret Pep 468.5 H Total Protein 6.6 Albumin 4.1 TSH 3.78 Urine Color Yellow Urine Appearance Clear Urine pH 7.0 Ur Specific [place] <= 1.005 Urine Protein Negative Urine Glucose (UA) Negative Urine Ketones Negative Urine Blood Negative Urine Nitrite Negative Ur Leukocyte Esterase Negative Urine Opiates Screen Not Detected Ur Buprenorphine Scrn Not Detected Ur Oxycodone Screen Not Detected Urine Methadone Screen Not Detected Urine Fentanyl Screen Not Detected Ur Barbiturates Screen Not Detected Ur Phencyclidine Scrn Not Detected Ur Amphetamines Screen Not Detected U Benzodiazepines Scrn Not Detected Urine Cocaine Screen Not Detected U Marijuana (THC) Screen Not Detected Ethyl Alcohol < 10 COVID-19 (RIDDHI) Negative COVID-19 Clin Com See Note Influenza Type A (TIAGO) Negative Influenza Type B (TIAGO) Negative Influenza A & B Note See Note Imaging Radiologist's Impressions: Impressions Chest CTA 05/21/25 13:09 IMPRESSION: No evidence of pulmonary emboli. Slightly enlarged heart. Scattered areas of mild bronchial wall thickening. No evidence of pneumonia or pulmonary edema. Electronically signed by: Gracia Dailey MD 05/21/2025 01:36 PM EDT RP Assessment and Plan (1) Atrial fibrillation with RVR: Status: Acute Plan Patient is a 70-year-old male with PMH rather unknown/undiagnosed as the patient has not visited a physician in the past 10 years(by choice) after 1 bad encounter. Patient likely had long duration of AFib with RVR which is likely became symptomatic last night necessitating his admission to the ED and he was noted to have new onset AFib with RVR. Reverted by self post diltiazem loading dose in the ED hence drip was not started. #New onset AFib with RVR likely triggered by his recent upper respiratory infection however chronicity unknown as he has been without any PCP by choice We will continue monitoring on telemetry We will be NPO in case he reverts back to AFib and during which time we will initiate diltiazem drip Cardiology has been notified and consulted Continue anticoagulation with Eliquis which has been initiated today Rate control medication Toprol-XL low dose to be initiated Patient is in sinus bradycardia hence we will not initiate if it is less than 60 CTA has been which has ruled out PE/pericardial effusion or infiltrate If the patient continues to remain in sinus, he will likely need at least 2-4 weeks of anticoagulation before he can get a repeat echo, cardioversion outpatient #Prior rhinovirus infection on 05/17/25, not hypoxic on room air Symptomatic treatment with p.r.n. nebulizers, pulmonary hygiene DVT prophylaxis with Eliquis Hospitalization is indicated for this patient with new-onset atrial fibrillation with rapid ventricular response (RVR), which required initiation of a diltiazem drip for rate control. Although the patient reverted to sinus rhythm following the diltiazem loading dose, inpatient monitoring remains necessary to observe for recurrence of arrhythmia, ensure hemodynamic stability, and titrate medications as needed. Hospital admission also allows for evaluation of underlying causes, initiation of anticoagulation if indicated, and prevention of potential complications such as thromboembolism or heart failure. This note is constructed using voice recognition software. While every effort has been made to ensure accuracy, equity research analyst errors may have been included. Quality Stroke Does the patient have a stroke diagnosis?: No VTE Prior VTE?: No VTE Risk Level:: Medical - moderate - high VTE Device Contraindication: N/A - Device Ordered VTE Drug Contraindication: N/A - Med Ordered
[2025-05-21 15:11] LABS: Troponin-I High Sensitivity 36.8 ng/L (<3.5-35.0)
--- NOTE | 2025-05-21 15:20 | ECG_ITS ---
Test Reason : CONVERTED TO SR Blood Pressure : */* mmHG Vent. Rate : 52 BPM Atrial Rate : 52 BPM P-R Int : 124 ms QRS Dur : 98 ms QT Int : 430 ms P-R-T Axes : 26 -26 37 degrees QTcB Int : 399 ms Sinus bradycardia Otherwise normal ECG When compared with ECG of 21-May-2025 11:34, Sinus rhythm has replaced Atrial fibrillation Vent. rate has decreased by 60 bpm Nonspecific T wave abnormality now evident in Lateral leads Referred By: Asim Haas Electronically Signed By: ODILON JUNIOR MD
--- NOTE | 2025-05-21 15:21 | PC.NURSE ---
Pt noted to have converted out of A. Fib, sinus diana noted at 54 bpm. Cardiezm not started as ordered.
--- NOTE | 2025-05-21 15:23 | PHA.MEDREC ---
Addendum entered by Mike Frederick, PharmD 05/21/25 15:35: MED REC CHECKED BY [facility] Original Note: Pharmacy Consult ? Medication Reconciliation Pharmacy has completed the medication reconciliation. Spoke with pt and pt family at bedside. Pt confirmed he is taking Prednisone 50mg daily and has about 3 days worth of that at home.
--- NOTE | 2025-05-21 15:35 | PC.NURSE ---
Confirmed with lola Oates this time.
[2025-05-21 20:02] LABS: Troponin-I High Sensitivity 40.8 ng/L (<3.5-35.0)
--- NOTE | 2025-05-21 20:12 | PC.NURSE ---
Pt resting in room, changed from stretcher to hospital bed. Denies pain. Remains in sinus diana. Denies any concerns at this time
[2025-05-22 01:46] VITALS: BP 160/77; PULSE 53; RESP 14; O2SAT 96
[2025-05-22 05:08] LABS: MANUAL DIFF FLAG NO
[2025-05-22 05:12] LABS: Hematocrit 40.7 % (42.0-52.0); Hemoglobin 13.5 g/dl (14.0-18.0); Imm Gran Abs Auto 0.03 X10*3/uL (0.00-0.03); Imm Gran Pct Auto 0.3 % (0.0-0.4); Lymphocytes Absolute Auto 3.0 X10*3/uL (1.2-4.9); Mean Corpuscular HGB Conc 33.2 g/dl (31.0-36.0); Mean Corpuscular Hemoglobin 28.8 pg (27.0-33.0); Mean Corpuscular Volume 87.0 fL (80.0-98.0); NRBC Abs Auto 0.000 X10*3/uL (0.0-0.012); NRBC Pct Auto 0.0 /100WBC (0.0-0.2); Platelet Count 239 X10*3/uL (160-400); Red Blood Count 4.68 X10*6/uL (4.60-5.80); White Blood Count 11.2 X10*3/uL (4.8-10.8)
[2025-05-22 05:18] LABS: INTERNATIONAL NORM RATIO 1.3 (0.9-1.1); Prothrombin Time 14.9 SEC (10.9-12.4)
[2025-05-22 05:25] LABS: Alanine Aminotransferase 23 U/L (0-40); Albumin Level 3.5 g/dL (3.5-5.0); Alkaline Phosphatase 85 U/L (39-117); Anion Gap 10 (12-20); Aspartate Amino Transferase 32 U/L (5-37); Blood Urea Nitrogen 26 mg/dL (9-16); Calcium 8.0 mg/dL (8.4-10.2); Carbon Dioxide 24 mmol/L (22-29); Chloride 114 mmol/L (96-108); Cholesterol 111 mg/dL (<200); Creatinine Clr Calc Pharmacy 107.3; Estimated Glomerular Filt Rate > 60; HDL Cholesterol 25 mg/dL (>40); Potassium 3.9 mmol/L (3.3-5.1); Sodium 144 mmol/L (135-145); Total Protein 5.7 g/dL (6.5-8.0); Triglycerides 88 mg/dL (<150)
[2025-05-22 06:04] VITALS: BP 171/82; PULSE 52; RESP 14; TEMP 36.4; O2SAT 96
[2025-05-22 08:10] VITALS: BP 171/82; PULSE 56; RESP 15; TEMP 36.6; O2SAT 97
--- NOTE | 2025-05-22 08:13 | PM.CNCAR ---
History of Present Illness History of Present Illness Date of Service: 05/22/25 Requesting physician: Joana Gomez Consult reason: chest pain and atrial fibrillation Chief complaint: New onset Afib with RVR Narrative: I was consulted to see Claus in cardiology consultation today for new onset atrial fibrillation chest pain with elevated blood pressure. He is a pleasant 70-year-old male with prior history of smoking, not diagnose COPD was recently having increasing symptoms of cough after having a rhino virus infection with shortness of breath and wheezing. He did go to urgent care where he was initiated on treatment with prednisone and inhalers. He noted that his blood pressure is elevated at that time in the 190/90 range. He said about 10 years ago he did see his primary care physician with slightly elevated blood pressure and was concerned about at that time and wanted to start treatment although he did not start treatment stopped following with a primary care physician. He says blood pressure MIBI in high but he has not been regularly monitoring it. 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 He said this is last time he has smoke in his not smoke for about 4 days although still has some nicotine cravings. 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 When he came to the Emergency was noted to be in atrial fibrillation rapid ventricular response and was being manage. His troponins were negative. EKGs did not show any significant ischemic changes. After rate control he reverted back to sinus rhythm and started feeling better right away. He has remained in sinus rhythm overnight. However his blood pressure remains elevated. Denies any recent symptoms of orthopnea, PND, leg edema. Denies any symptoms of claudication. He has not any history of atrial fibrillation in the past. No strong family history. Review of Systems Constitutional: Constitutional: Denies chills and Denies fever(s) Eyes: Eyes: Reports no additional eye complaints Cardiovascular: Cardiovascular: Reports chest pain at rest, Denies chest pain with activity, Denies rapid heart rate, Denies lightheadedness, Denies Loss of Consciousness, Denies palpitations and Reports dyspnea on exertion Respiratory: Respiratory: Reports cough, Reports dyspnea on exertion and Reports wheezing Gastrointestinal: Gastrointestinal: Reports no additional gastrointestinal complaints Musculoskeletal: Musculoskeletal: Reports no additional musculoskeletal complaints Integumentary/Breasts: Skin/Breast: Reports system reviewed and no additional complaints, except as docu Neurologic: Reports system reviewed and no additional complaints, except as documented Psychiatric: Psychiatric: Reports no additional psychiatric complaints Endocrine: Endocrine: Reports no additional endocrine complaints and Denies palpitations Allergic/Immunologic: Allergic/Immunologic: Reports wheezing [facility] Social History Social History Patient Tobacco Use Status: Current everyday Tobacco user Smoked in Last 30 Days: Yes Use of substances other than those prescribed or required for medical reasons: No Advance Directives: No Advance Directives Information Provided: Yes Nutrition Risks: No Nutritional Risk Meds Allergies Allergy/AdvReac Type Severity Reaction Status Date / Time meperidine (From Demerol) Allergy Mild Stomach Verified 05/21/25 11:40 Upset Active Medications: Current Medications Acetaminophen (Acetaminophen 325 Mg Tablet) 650 mg PO Q6H PRN PRN Reason: Pain, Mild 1-3,fever,headache Albuterol Sulfate (Albuterol Sulfate 90 Mcg 8 Gm Inhaler) 2 puff INHALE RQ4H PRN PRN Reason: Dyspnea Amlodipine Besylate (Amlodipine Besylate 5 Mg Tablet) 5 mg PO DAILY [facility]; Protocol Apixaban (Apixaban 5 Mg Tablet) 5 mg PO BID [facility] Last Admin: 05/21/25 21:04 Dose: 5 mg Benzonatate (Benzonatate 100 Mg Capsule) 100 mg PO TID PRN PRN Reason: Cough Calcium Carbonate (Calcium Carbonate 750 Mg Tab.Chew) 750 mg PO Q4H PRN PRN Reason: Heartburn Docusate Sodium (Docusate Sodium 100 Mg Capsule) 100 mg PO BID [facility] Last Admin: 05/21/25 21:04 Dose: 100 mg Magnesium Hydroxide (Milk Of Magnesia 30 Ml Oral.Susp) 30 ml PO DAILY PRN PRN Reason: Constipation Melatonin (Melatonin 3 Mg Tablet) 6 mg PO BEDTIME PRN PRN Reason: Insomnia Metoprolol Succinate (Metoprolol Succinate Er 50 Mg Tab.Er.24h) 50 mg PO DAILY [facility]; Protocol Non-Formulary Medication (Prednisone) 50 mg PO DAILY [facility] Ondansetron HCl (Ondansetron Hcl 4 Mg/2 Ml Vial) 4 mg IVPUSH Q8H PRN PRN Reason: Nausea and Vomiting Polyethylene Glycol (Polyethylene Glycol 3350 17 Gm Powd.Pack) 17 gm PO DAILY PRN PRN Reason: Constipation Senna (Sennosides 8.6 Mg Tablet) 17.2 mg PO BEDTIME [facility] Last Admin: 05/21/25 21:04 Dose: 17.2 mg Sodium Chloride (0.9 % Sodium Chloride Flush 3 Ml Syringe) 3 ml IVFLUSH QSHIFT [facility] Last Admin: 05/22/25 01:45 Dose: Not Given Temazepam (Temazepam 15 Mg Capsule) 15 mg PO BEDTIME PRN PRN Reason: Insomnia Home Medications ?Medication ?Instructions ?Recorded ?Confirmed ?Last Taken ?Type prednisone 50 mg tablet 50 mg PO DAILY 05/21/25 05/21/25 05/20/25 History Physical Exam Vital Signs: Vital Signs: Last Vital Signs Temp 97.8 F 05/22/25 08:10 Pulse 56 05/22/25 08:10 Resp 15 05/22/25 08:10 BP 171/82 H 05/22/25 08:10 Pulse Ox 97 05/22/25 08:10 O2 Del Method Room Air 05/22/25 08:10 O2 Flow Rate 96 05/21/25 11:59 BMI result Body Mass Index 28.6 Const: General: cooperative, comfortable, alert and in distress mild and respiratory Nutritional Appearance: overweight Orientation/consciousness: patient oriented x3 Limitations: no limitations HEENT: Head: Yes normocephalic and Yes atraumatic Neck: Neck: Yes trachea midline, Yes supple and Yes no JVD Resp: Effort & Inspection: normal respiratory effort Auscultation: no rales, no wheezes and diminished lung sounds Cardio: Jugular venous distension: no JVD Rate: regular rate Rhythm: regular rhythm Heart sounds: S1 normal heart sound present, S2 normal heart sound present, no click, no gallops and no murmurs GI: Auscultation: normal bowel sounds Skin: General skin exam: no rashes or lesions noted Neuro: General: patient oriented x3 and no focal motor deficits Extrem: General: Yes no clubbing, cyanosis or edema Psych: Appearance: grossly normal Objective Labs and Meds 05/22/25 04:43 05/22/25 04:43 Lab results: Laboratory Results - last 24 hr 10/05/21/25 05/21/25 11:51 12:09 13:02 WBC 9.3 RBC 5.33 Hgb 15.3 Hct 45.4 MCV 85.2 MCH 28.7 MCHC 33.7 RDW 13.1 Plt Count 238 MPV 10.7 Immature Gran % (Auto) 0.3 Neut % (Auto) 58.1 Lymph % (Auto) 30.1 [place] % (Auto) 9.1 Eos % (Auto) 1.9 Baso % (Auto) 0.5 Lymph # (Auto) 2.8 [place] # (Auto) 0.9 Eos # (Auto) 0.2 Baso # (Auto) 0.1 Abs Immat Gran (auto) 0.03 Absolute Neuts (auto) 5.4 Absolute Nucleated RBC 0.000 Nucleated RBC % (auto) 0.0 PT INR Sodium 142 Potassium 3.3 D Chloride 110 H Carbon Dioxide 25 Anion Gap 10 L BUN 22 H Creatinine 0.82 Estim Creat Clear Calc 102.0 Estimated GFR > 60 Random Glucose 128 H Lactic Acid 1.3 Calcium 8.3 L D Magnesium 2.2 Total Bilirubin 0.3 Direct Bilirubin 0.1 AST 29 ALT 29 Alkaline Phosphatase 102 Troponin I High Sens 13.0 NT-Pro-B Natriuret Pep 468.5 H Total Protein 6.6 Albumin 4.1 Triglycerides Cholesterol LDL Cholesterol, Calc HDL Cholesterol TSH 3.78 Urine Color Yellow Urine Appearance Clear Urine pH 7.0 Ur Specific [place] <= 1.005 Urine Protein Negative Urine Glucose (UA) Negative Urine Ketones Negative Urine Blood Negative Urine Nitrite Negative Ur Leukocyte Esterase Negative Urine Opiates Screen Not Detected Ur Buprenorphine Scrn Not Detected Ur Oxycodone Screen Not Detected Urine Methadone Screen Not Detected Urine Fentanyl Screen Not Detected Ur Barbiturates Screen Not Detected Ur Phencyclidine Scrn Not Detected Ur Amphetamines Screen Not Detected U Benzodiazepines Scrn Not Detected Urine Cocaine Screen Not Detected U Marijuana (THC) Screen Not Detected Ethyl Alcohol < 10 COVID-19 (RIDDHI) Negative COVID-19 Clin Com See Note Influenza Type A (TIAGO) Negative Influenza Type B (TIAGO) Negative Influenza A & B Note See Note 05/21/25 05/21/25 05/22/25 14:43 19:36 04:43 WBC 11.2 H RBC 4.68 Hgb 13.5 L Hct 40.7 L MCV 87.0 MCH 28.8 MCHC 33.2 RDW 13.3 Plt Count 239 MPV 10.7 Immature Gran % (Auto) 0.3 Neut % (Auto) 62.5 Lymph % (Auto) 26.9 [place] % (Auto) 8.2 Eos % (Auto) 1.6 Baso % (Auto) 0.5 Lymph # (Auto) 3.0 [place] # (Auto) 0.9 Eos # (Auto) 0.2 Baso # (Auto) 0.1 Abs Immat Gran (auto) 0.03 Absolute Neuts (auto) 7.0 Absolute Nucleated RBC 0.000 Nucleated RBC % (auto) 0.0 PT 14.9 H INR 1.3 H Sodium 144 Potassium 3.9 Chloride 114 H Carbon Dioxide 24 Anion Gap 10 L BUN 26 H Creatinine 0.78 Estim Creat Clear Calc 107.3 Estimated GFR > 60 Random Glucose 91 Lactic Acid Calcium 8.0 L Magnesium Total Bilirubin 0.3 Direct Bilirubin AST 32 ALT 23 Alkaline Phosphatase 85 Troponin I High Sens 36.8 H D 40.8 H NT-Pro-B Natriuret Pep Total Protein 5.7 L Albumin 3.5 Triglycerides 88 Cholesterol 111 LDL Cholesterol, Calc 69 HDL Cholesterol 25 L TSH Urine Color Urine Appearance Urine pH Ur Specific [place] Urine Protein Urine Glucose (UA) Urine Ketones Urine Blood Urine Nitrite Ur Leukocyte Esterase Urine Opiates Screen Ur Buprenorphine Scrn Ur Oxycodone Screen Urine Methadone Screen Urine Fentanyl Screen Ur Barbiturates Screen Ur Phencyclidine Scrn Ur Amphetamines Screen U Benzodiazepines Scrn Urine Cocaine Screen U Marijuana (THC) Screen Ethyl Alcohol COVID-19 (RIDDHI) COVID-19 Clin Com Influenza Type A (TIAGO) Influenza Type B (TIAGO) Influenza A & B Note Imaging Radiologist's impression: Impressions Chest CTA 05/21/25 13:09 IMPRESSION: No evidence of pulmonary emboli. Slightly enlarged heart. Scattered areas of mild bronchial wall thickening. No evidence of pneumonia or pulmonary edema. Electronically signed by: Gracia Dailey MD 05/21/2025 01:36 PM EDT Assessment and Plan (1) Paroxysmal atrial fibrillation: Status: Acute Paroxysmal atrial fibrillation, new onset with highly symptomatic presentation with chest pain. Underlying myocardial ischemia needs to be ruled out. However he has converted back to sinus rhythm and symptoms have improved. Will start him on Toprol-XL 50 mg to reduce cardiac excitability. CHADSVASc score of at least 2. Agree with Eliquis 5 mg b.i.d.. 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 Discussed with him about the same. Management was discussed in details. Will pursue rhythm control approach. For now would avoid any antiarrhythmic drug unless he has recurrent episodes. Avoidance of stimulants was discussed. Will follow up with outpatient workup including echocardiogram and Holter monitor. He would also need a stress test given his presentation with chest pain which can be done as an outpatient in few weeks once his low respiratory tract infection improves. He will also need a sleep study due to his uncontrolled hypertension as well as atrial fibrillation to rule out which may need treatment if he has underlying significant sleep apnea. (2) Uncontrolled hypertension: Status: Acute Uncontrolled hypertension in this elderly man with longstanding hypertension probably uncorrected. Start him on mode metoprolol as above and also Norvasc 5 mg daily. Will need echocardiogram. Low-salt diet was discussed. Workup for sleep apnea as above. Advised to monitor blood pressure at home. Will follow up in the clinic in 7-10 days for blood pressure check. (3) Lower respiratory infection (e.g., bronchitis, pneumonia, pneumonitis, pulmonitis): Status: Acute Patient had viral upper respiratory symptoms which are now converted in to worsening shortness of breath and wheezing and COPD exacerbation with cough. Agree with treatment with steroids as well as bronchodilators and would switch him to Xopenex rather than Proventil to reduce cardiac excitability. Also consider antibiotic dose. Strong advised to stop smoking. He is very amenable to that. Consider nicotine patches on discharge so that he may have a better chance of abstaining from smoking. Will need PFT workup as outpatient to diagnose underlying COPD. Will follow up as outpatient. Thank you for allowing me to partake in his care Procedures Date of Service Date of Service: 05/22/25
[2025-05-22 08:33] VITALS: BP 153/68
[2025-05-22] MEDS: 0.9 % Sodium Chloride Flush 3 ML SYRINGE IVFLUSH (08:36)
[2025-05-22 08:39] VITALS: BP 153/68; PULSE 61
[2025-05-22] MEDS: Metoprolol Succinate ER 50 MG TAB.ER.24H PO (08:39)
--- NOTE | 2025-05-22 09:36 | P.DS_ITS ---
DS: Providers Provider Date of Service: 05/22/25 Date of admission: 05/21/25 14:48 Date of discharge: 05/22/25 Primary care physician: Nguyen Trevizo PA-C Consults: 05/21/25 14:53 Consult to Cardiology Routine Consulting Provider: [facility] Reason for consultation: new onset Afib with RVR , not controlled DS: Diagnosis Discharge Diagnosis (1) Paroxysmal atrial fibrillation: Status: Acute (2) Uncontrolled hypertension: Status: Acute (3) Lower respiratory infection (e.g., bronchitis, pneumonia, pneumonitis, pulmonitis): Status: Acute DS: Summary Hospital Course Hospital Course: from initial hpi: 70-year-old male with PMH rather unknown/undiagnosed as the patient has not visited a physician in the past 10 years(by choice) after 1 bad encounter. Patient reports having waking up last night with left-sided chest pain with radiation to the anterior chest in the left arm, persistent intermittent and like a heavy feeling in his chest. He then decided that he likely needs help as he waited it out and it did not go away. He denies any SOB/diaphoresis, nausea, vomiting, lightheadedness. His prior records/urgent Care report he had a rhinovirus a few days who. Which is likely also the inciting event. In the ED workup revealed new onset AFib with RVR with a heart rate in the 180-200 (likely chronic) with poor response to rate-controlling medications (120s), with blood pressure holding. Daughter and son at the bedside during this entire encounter. EKG demonstrated AFib with RVR, no ST elevations. CTA negative for any PE, pericardial effusion or infiltrate. Cardiology was consulted and he was initially to be started on diltiazem drip however the patient self reverted after receiving loading dose of diltiazem. He was started on Eliquis for anticoagulation, rate control medication to be started tomorrow per Cardiology Toprol-XL (have not initiated as he did appears to be on sinus bradycardia with a heart rate in the 50s). TTE has been ordered, monitored on telemetry, negative troponin. Hence we repeated EKG to record a sinus rhythm which she was noted to have sinus bradycardia with a rate in the 50s. Remained hemodynamically stable with a SBP in the on 10s to 120s throughout the entire interaction. Patient is being admitted for further medical management of new onset AFib with RVR necessitating further medical management. hospital course: Patient was admitted for new onset atrial fibrillation with rapid ventricular response that converted to sinus rhythm with diltiazem. He was seen by Cardiology recommended starting Toprol 50 mg daily, apixaban, outpatient follow up for further workup. For uncontrolled hypertension was also started on amlodipine 5 mg daily. For recent acute bronchitis due to rhino virus was continued on prednisone and DuoNebs. Patient is currently in sinus rhythm and feeling better he will be discharged home. Time Attestation Discharge Coordination Time (in mins): 33 Quality: Safe Use of Opioids Does Pt have an Active Cancer Diagnosis on the Problem List?: No Quality: Stroke Does the patient have a stroke diagnosis?: No Physical Exam Exam: Exam: General: AO X 3, no acute distress Resp: CTA bilateral, no accessory muscles used CVS: S1,S2,RRR GI: soft, non tender, non distended Neuro: motor grossly intact, alert Psych: appropriate affect, appropriate insight Vital Signs: Vital Signs: Last Vital Signs Temp 97.8 F 05/22/25 08:10 Pulse 61 05/22/25 08:39 Resp 15 05/22/25 08:10 BP 153/68 H 05/22/25 08:39 Pulse Ox 97 05/22/25 08:10 O2 Del Method Room Air 05/22/25 08:10 O2 Flow Rate 96 05/21/25 11:59 BMI result Body Mass Index 28.6 DS: Data Data Completed and Pending Labs on day of discharge: Laboratory Results - last 24 hr 05/21/25 05/21/25 05/21/25 11:51 12:09 13:02 WBC 9.3 RBC 5.33 Hgb 15.3 Hct 45.4 MCV 85.2 MCH 28.7 MCHC 33.7 RDW 13.1 Plt Count 238 MPV 10.7 Immature Gran % (Auto) 0.3 Neut % (Auto) 58.1 Lymph % (Auto) 30.1 [place] % (Auto) 9.1 Eos % (Auto) 1.9 Baso % (Auto) 0.5 Lymph # (Auto) 2.8 [place] # (Auto) 0.9 Eos # (Auto) 0.2 Baso # (Auto) 0.1 Abs Immat Gran (auto) 0.03 Absolute Neuts (auto) 5.4 Absolute Nucleated RBC 0.000 Nucleated RBC % (auto) 0.0 PT INR Sodium 142 Potassium 3.3 D Chloride 110 H Carbon Dioxide 25 Anion Gap 10 L BUN 22 H Creatinine 0.82 Estim Creat Clear Calc 102.0 Estimated GFR > 60 Random Glucose 128 H Lactic Acid 1.3 Calcium 8.3 L D Magnesium 2.2 Total Bilirubin 0.3 Direct Bilirubin 0.1 AST 29 ALT 29 Alkaline Phosphatase 102 Troponin I High Sens 13.0 NT-Pro-B Natriuret Pep 468.5 H Total Protein 6.6 Albumin 4.1 Triglycerides Cholesterol LDL Cholesterol, Calc HDL Cholesterol TSH 3.78 Urine Color Yellow Urine Appearance Clear Urine pH 7.0 Ur Specific Philip <= 1.005 Urine Protein Negative Urine Glucose (UA) Negative Urine Ketones Negative Urine Blood Negative Urine Nitrite Negative Ur Leukocyte Esterase Negative Urine Opiates Screen Not Detected Ur Buprenorphine Scrn Not Detected Ur Oxycodone Screen Not Detected Urine Methadone Screen Not Detected Urine Fentanyl Screen Not Detected Ur Barbiturates Screen Not Detected Ur Phencyclidine Scrn Not Detected Ur Amphetamines Screen Not Detected U Benzodiazepines Scrn Not Detected Urine Cocaine Screen Not Detected U Marijuana (THC) Screen Not Detected Ethyl Alcohol < 10 COVID-19 (RIDDHI) Negative COVID-19 Clin Com See Note Influenza Type A (TIAGO) Negative Influenza Type B (TIAGO) Negative Influenza A & B Note See Note 05/21/25 05/21/25 05/22/25 14:43 19:36 04:43 WBC 11.2 H RBC 4.68 Hgb 13.5 L Hct 40.7 L MCV 87.0 MCH 28.8 MCHC 33.2 RDW 13.3 Plt Count 239 MPV 10.7 Immature Gran % (Auto) 0.3 Neut % (Auto) 62.5 Lymph % (Auto) 26.9 [place] % (Auto) 8.2 Eos % (Auto) 1.6 Baso % (Auto) 0.5 Lymph # (Auto) 3.0 [place] # (Auto) 0.9 Eos # (Auto) 0.2 Baso # (Auto) 0.1 Abs Immat Gran (auto) 0.03 Absolute Neuts (auto) 7.0 Absolute Nucleated RBC 0.000 Nucleated RBC % (auto) 0.0 PT 14.9 H INR 1.3 H Sodium 144 Potassium 3.9 Chloride 114 H Carbon Dioxide 24 Anion Gap 10 L BUN 26 H Creatinine 0.78 Estim Creat Clear Calc 107.3 Estimated GFR > 60 Random Glucose 91 Lactic Acid Calcium 8.0 L Magnesium Total Bilirubin 0.3 Direct Bilirubin AST 32 ALT 23 Alkaline Phosphatase 85 Troponin I High Sens 36.8 H D 40.8 H NT-Pro-B Natriuret Pep Total Protein 5.7 L Albumin 3.5 Triglycerides 88 Cholesterol 111 LDL Cholesterol, Calc 69 HDL Cholesterol 25 L TSH Urine Color Urine Appearance Urine pH Ur Specific Philip Urine Protein Urine Glucose (UA) Urine Ketones Urine Blood Urine Nitrite Ur Leukocyte Esterase Urine Opiates Screen Ur Buprenorphine Scrn Ur Oxycodone Screen Urine Methadone Screen Urine Fentanyl Screen Ur Barbiturates Screen Ur Phencyclidine Scrn Ur Amphetamines Screen U Benzodiazepines Scrn Urine Cocaine Screen U Marijuana (THC) Screen Ethyl Alcohol COVID-19 (RIDDHI) COVID-19 Clin Com Influenza Type A (TIAGO) Influenza Type B (TIAGO) Influenza A & B Note Discharge Plan Discharge Anticipated Discharge Date/Time: 05/22/25 09:34 Patient Disposition: Home, Self-Care Discharge Diagnosis: afib Referrals: Nguyen Trevizo PA-C [Primary Care Provider, Internal Medicine] - 1 Week Discharge Medications: New metoprolol succinate 50 mg Tablet Extended Release 24 Hr 50 mg PO DAILY 90 Days Qty: 90 0RF Protocol: Hold for SBP/HR < HOLD for SBP < : 90 HOLD for HR < : 60 amlodipine 5 mg Tablet 5 mg PO DAILY 90 Days Qty: 90 0RF Protocol: Hold for SBP< HOLD for SBP < : 90 Eliquis 5 mg Tablet 5 mg PO BID Qty: 180 0RF Continued prednisone 50 mg tablet 50 mg PO DAILY albuterol sulfate 90 mcg/actuation HFA aerosol inhaler 2 puff inhalation Q6H PRN (Reason: shortness of breath or wheezing or cough) Qty: 8.5 0RF Discharge Orders: Discharge Order (Routine); Ordered 05/22/25 Ordered By: Jeff Avila Diet: Advance to usual diet Activity on Discharge: As tolerated Stand Alone Forms: Patient Portal Discharge page Print Language: Swedish Care Plan Goals: Manage AFib Health Concerns: AFib Plan of Treatment: Start metoprolol succinate 50 mg daily, amlodipine 5 mg daily, apixaban 5 mg twice daily, follow up with Cardiology, complete prednisone course Assessment: See above
--- NOTE | 2025-05-22 09:39 | MHC.CM.PN ---
Addendum entered by Lor Kaur 05/22/25 09:53: Pt. asleep, HCP form left at bedside. Original Note: Pt. lives alone, PCP confirmed: [facility]. HCP discussed, pt will complete form here and it will be added to chart. He does not use home health services or DME. Pt. can arrange a ride home at [place], DCP: home, self care, CM to follow for [place] needs.
[2025-05-22 10:33] VITALS: BP 153/68; PULSE 61; RESP 18; TEMP 37.1; O2SAT 97
== END 2025-05-22 10:31 | disposition home or self-care (01) | DRG 201 ==
LOC: HO.ED 12:57 → HO.EDOVER 14:59
PROVIDERS: Physician Assistant; Admitting Provider Student in an Organized Health Care Education/Training Program; Emergency Provider Emergency Medicine; PCP Physician Assistant Medical; Visit Provider Internal Medicine
DX: I48.0 Paroxysmal atrial fibrillation (principal); F17.210 Nicotine dependence, cigarettes, uncomplicated; I10 Essential (primary) hypertension; Z71.6 Tobacco abuse counseling; J20.6 Acute bronchitis due to rhinovirus; Z20.822 Contact with and (suspected) exposure to COVID-19
CPT/HCPCS: 36415; 71275; 80048; 80053; 80061; 80076; 80307; 81003; 83605; 83735; 83880; 84443; 84484; 85025; 85610; 87040; 87502; 87635; 93005; 97161; 97165; 99285; J7120; Q9967

== ENCOUNTER → 2025-05-21 11:32 | Outpatient (BNV) | payer BC, MEDICARE, SELFPAY | PROVIDERS: Emergency Provider Emergency Medicine; PCP Physician Assistant Medical; Visit Provider Internal Medicine Cardiovascular Disease | DX: R00.1 Bradycardia, unspecified (principal) | CPT/HCPCS: 93010 ==

== ENCOUNTER → 2025-05-21 11:39 | Outpatient (BNV) | payer BC, SELFPAY | PROVIDERS: Emergency Provider Emergency Medicine; PCP Physician Assistant Medical; Visit Provider Radiology Diagnostic Radiology | DX: I51.7 Cardiomegaly (principal); J98.09 Other diseases of bronchus, not elsewhere classified; I48.91 Unspecified atrial fibrillation | CPT/HCPCS: 71275 ==

== ENCOUNTER → 2025-05-21 14:48 | Outpatient (BNV) | payer BC, SELFPAY | PROVIDERS: Admitting Provider Student in an Organized Health Care Education/Training Program; Emergency Provider Emergency Medicine; PCP Physician Assistant Medical; Visit Provider Student in an Organized Health Care Education/Training Program | DX: I48.91 Unspecified atrial fibrillation (principal) | CPT/HCPCS: 99223 ==

== ENCOUNTER → 2025-05-21 14:48 | Outpatient (BNV) | payer BC, SELFPAY | PROVIDERS: Admitting Provider Student in an Organized Health Care Education/Training Program; Emergency Provider Emergency Medicine; PCP Physician Assistant Medical; Visit Provider Internal Medicine Cardiovascular Disease | DX: I48.0 Paroxysmal atrial fibrillation (principal); I10 Essential (primary) hypertension; J22 Unspecified acute lower respiratory infection | CPT/HCPCS: 99253 ==

== ENCOUNTER 2025-05-31 13:10 | Outpatient (AMB) | payer BC, SELFPAY ==
--- NOTE | 2025-05-31 13:43 | MHC.PC.OV ---
Vital Signs 05/31/25 13:46 06/03/25 13:08 Height 5 ft 11.65 in Weight 210 lb BMI 28.8 BP 168/88 H 150/76 H Blood Pressure Location Rt brachial Position Sitting Respiration 16 Pulse 60 Pulse Source Pulse Oximeter Temp 98.0 F Temp Source Temporal Artery Scan Pulse Oximetry (%) 96 Oxygen Delivery Method Room Air Intake Visit Reasons: Annual physical-New/TCM Intake Note: Visit Reason: TCM Intake Note: Patient is here for hospital discharge follow up. Patient was discharged from [facility] on 05/22/25 Venetian Blind Washer Required: No Hair Boiler: Not Required per policy Accompanied by: Self / Same As Patient Allergies meperidine (From Demerol) Allergy (Mild, Verified 05/31/25 14:12) Stomach Upset Medication List - Last Reconciled 05/31/25 by Nguyen Trevizo PA-C albuterol sulfate 90 mcg/actuation 2 puffs inhalation Q6H PRN amlodipine 5 mg See Protocol PO DAILY 90 days apixaban (Eliquis) 5 mg PO BID metoprolol succinate ER 50 mg See Protocol PO DAILY 90 days Tobacco use date assessed: 05/31/25 Fall risk assessment: No Falls in past year Last assessed Fall Risk: 05/31/25 Dental Screening Dental Screen Date: 05/31/25 Did you have a dental visit in the last 12 months?: No Did you have a dental problem in the last 6 months where you did not have access to dental care?: No HPI HPI Comments History of Present Illness Details Patient presents to the office for a TCM visit. Date of admission: 05/21/2025 Date of discharge: 05/22/2025 This is a Follow-up from admission at [facility] HPI/Hospital Course/Discharge Summary: The patient is a 70-year-old male presenting for a follow-up visit after a hospital discharge for new-onset atrial fibrillation. He has not seen a physician in the past 10 years. The patient was hospitalized at [facility] from 05/21/2025 to 05/22/2025 after presenting to the emergency department with left-sided chest pain that radiated to his left arm, described as a persistent, intermittent heavy feeling, which began the night prior. This was preceded by a rhinovirus infection a few days prior. In the emergency department, he was found to have new-onset atrial fibrillation with a rapid ventricular response (RVR), with heart rates in the 180s to 200s. He spontaneously converted to normal sinus rhythm after a loading dose of diltiazem. A CTA of the chest was negative for pulmonary embolism, pericardial effusion, or infiltrate. His troponin was elevated but did not significantly trend upwards. After conversion, his EKG showed sinus bradycardia with a heart rate in the 50s. During his hospitalization, he was started on Toprol XL 50 mg daily, Eliquis for anticoagulation, and amlodipine 5 mg for uncontrolled hypertension. He was also continued on prednisone and DuoNeb for acute bronchitis due to rhinovirus. At discharge, he was referred to cardiology for further workup, including a TTE. Since discharge, he reports feeling generally well but has some residual congestion from his respiratory infection. Further history reveals the patient has been smoking about a pack a day for 56 years and expresses a desire to quit. He denies any family history of cancer. Hospital labs showed a slightly elevated white blood cell count, mild anemia with an H&H of 13.5, mild dehydration with a BUN of 26, and low calcium. His lipid panel was favorable with an LDL of 69, though his HDL was low at 25. Social History: - Tobacco Use: The patient has a 38-jwde-eeur smoking history, smoking approximately one pack per day for 56 years, and is interested in quitting. - Alcohol Use: Reports he is not a big drinker but inquires if occasional alcohol consumption is permissible. - Caffeine Intake: The patient reports drinking a lot of coffee and had two cups of caffeinated coffee on the day of the visit. - Living Situation: Lives by himself. - Social Support: Has two sons, one daughter, and a brother who are willing to provide help if needed. - Employment: The patient is currently employed. - Functional Status: The patient is independent and denies needing assistance with daily activities, meal preparation, or medication management. Discharged to/Current Location: Home Lives with: Self Diagnosis: A fib with RVR Procedures performed: CTA of chest New medications: Discontinued medications: Change medications/dosing: Pending labs: none Pending diagnostic test:none Any Follow-up Labs required? none Any Follow-up Diagnostic test required? none How are you feeling? Good other than upper respiratory symptoms/cough Are you in any pain or discomfort? None at this time Do you have any questions about your condition or discharge instructions? not at this time Were you able to get your medications filled? yes Do you have any questions about your medications? none at this time informed about falls while being on blood thinner's and pt has not had any falls recently Any referrals required? Not at this time Were you able to schedule your follow-up appointment? yes If home health was ordered, have they contact you? none at this time pt declines Any outpatient services, if so, are you scheduled? none at this time pt declines Are there any additional resources like transportation you might need during her recovery? - VNA? none at this time pt declines - DIGESTION OPERATOR? none at this time pt declines - Meals on wheels? none at this time pt declines Educational need/resources: What support system do you have? Two Son's, daughter, Brother [facility] Medical History (Updated 06/03/25 @ 13:35 by Nguyen Trevizo PA-C) Healthcare maintenance Umbilical hernia Hospital discharge follow-up Nicotine dependence Family History Father Kidney disease Diabetes Mother BP (high blood pressure) Alzheimer disease Social History Housing: House Alcohol intake: current Alcohol intake frequency: holidays/special occasions only Patient Tobacco Use Status: Current everyday Tobacco user Cigarettes Per Day: 5 service: No Current occupational status: employed Cognitive needs: No Hearing needs: No Vision needs: Yes (rx glasses) Questionnaire PHQ-9 Over the last 2 weeks, how often have you been bothered by any of the following problems? 1. Little interest or pleasure in doing things: not at all 2. Feeling down, depressed, or hopeless: not at all 3. Trouble falling or staying asleep, or sleeping too much: not at all 4. Feeling tired or having little energy: not at all 5. Poor appetite or overeating: not at all 6. Feeling bad about yourself - or that you are a failure or have let yourself or your family down: not at all 7. Trouble concentrating on things, such as reading the newspaper or watching television: not at all 8. Moving or speaking so slowly that other people could have noticed. Or the opposite - being so fidgety or restless that you have been moving around a lot more than usual: not at all 9. Thoughts that you would be better off or of hurting yourself in some way: not at all Total score: 0 Depression Screening Interpretation: Negative Depression Screening Done: Yes 32148 - PHQ-9 Billing: Yes Source: Developed by Drs. Behzad Aguilar, Samira Guevara, Sravan Willingham and colleagues, with an educational juan from [employer]. Thrive Questionnaire Date Thrive assessed: 05/31/25 I am a: Patient What is your living situation today?: I have a steady place to live Within the past 12 months, did the food you bought not last and you didn't have the money to get more?: Never true Within the past 12 months, did you worry whether your food would run out before you got money to buy more?: Never true Do you have trouble paying for medicines?: No Do you have trouble getting transportation to medical appointments?: No Do you have trouble paying your heating and electricity bill?: No Do you have trouble taking care of your child, family member or friend?: No Do you have trouble with day-to-day activities such as bathing, preparing meals, shopping, managing finances, etc.?: No Are you currently unemployed and looking for a job?: No Are you interested in more education?: No Please select the resources that you would like help with: None THRIVE Score: 0 AUDIT C Alcohol Use Questionnaire (AUDIT-C) 1. How often do you have a drink containing alcohol?: Monthly or less 2. How many drinks containing alcohol do you have on a typical day when you are drinking?: 1 or 2 3. How often do you have six or more drinks on one occasion?: Never Total Score: 1 Score Reviewed/Action Taken: No MONALISA-7 AMB Questionnaire MONALISA-7 Date MONALISA - 7 assessed: 05/31/25 Feeling nervous, anxious, or on edge: 0 = Not at all Not being able to stop or control worryin = Not at all Worrying too much about different things: 0 = Not at all Trouble relaxin = Not at all Being so restless that it is hard to sit still: 0 = Not at all Becoming easily annoyed or irritable: 0 = Not at all Feeling afraid as if something awful might happen: 0 = Not at all Total MONALISA-7 score (0-4 normal; 5-9 mild; 10-14 moderate; 15-21 severe): 0 Source: Developed by Drs. Behzad Aguilar, Samira Guevara, Sravan Willingham and colleagues, with an educational juan from [employer]. MONALISA-7 Assessment Billing MONALISA-7 Assessment Tool: MONALISA-7 Assessment 01349 Review of Systems Const Details: - Constitutional: Reports feeling generally good. Denies fevers and unintentional weight loss. - Respiratory: Reports some congestion, cough productive of white mucus, and hoarseness. Denies shortness of breath and chest pain. - Cardiovascular: Denies chest pain and leg swelling. - Gastrointestinal: Denies nausea and vomiting. Reports normal bowel movements, though sometimes dark, which he attributes to spinach intake. Denies abdominal pain and bloody stools. - Neurological: Denies lightheadedness. - Skin: Denies sweating. - HEENT: Reports ear popping sensations and that his voice is improving. Denies throat pain. All systems reviewed & are unremarkable except as noted in HPI and below Physical exam (Primary Care) Vital Signs: Last Vital Signs Temp 98.0 F 05/31/25 13:46 Pulse 60 05/31/25 13:46 Resp 16 05/31/25 13:46 BP 150/76 H 06/03/25 13:08 Pulse Ox 96 05/31/25 13:46 Oxygen Delivery Method Room Air 05/31/25 13:46 Vitals signs have been reviewed. BMI result Body Mass Index 28.8 Tobacco/Smoking Status: Tobacco use Status Tobacco use date assessed 05/31/25 05/31/25 13:55 Patient Tobacco Use Status Current everyday Tobacco 05/31/25 13:55 PHQ-9: PHQ-9 Score PHQ-9: Total score 0 06/03/25 13:10 Depression Screening Interpretation: Negative Thrive Assessment: Date of Thrive Assessment Date Thrive assessed 05/31/25 05/31/25 13:55 Const Other: Appearance: Alert. Oriented X3. No acute distress. Head: Normal external exam. Normocephalic. Atraumatic. Eyes: Pupils are equal, round, and reactive to light. Extraocular movements intact. Conjunctiva and sclera normal. Eyelids normal. Ears: External auditory canal normal. Tympanic membranes normal. Throat: Pharynx normal. Uvula midline. Moist mucous membranes. Throat appears slightly red. Neck: Normal inspection. Neck supple. Full range of motion. No adenopathy. Thyroid Normal. No meningeal signs. No neck mass noted. Cardiovascular: Normal heart rate and rhythm. Heart sound normal. Pulses normal throughout. Slight murmur noted, likely related to AFib. Respiratory: No respiratory distress. Painless inspiration. Breath sounds slightly junky, especially in lower lobes. No wheezes/rales/rhonchi noted. Chest nontender. No accessory muscle usage noted or decreased air movement noted. Abdomen: Soft and nontender. Bowel sounds normal in all 4 quadrants. No distention noted. No organomegaly noted. No visible injury noted. Umbilical hernia noted, not bothersome. Back: No costovertebral angle tenderness. Full range of motion noted. Skin: Skin warm and dry. Normal skin color. Normal skin turgor. No rashes/lesions/lacerations noted. Extremities: No lower extremity edema. Extremities exhibit normal range of motion. Neuro: Oriented X 3. No motor deficit. No sensory deficit. Reflexes normal. Results Reviewed Results Reviewed: - Labs from recent hospitalization: - CBC: Mildly elevated white blood cell count; Hemoglobin 13.5 g/dL. - CMP: Sodium 144 mmol/L, Chloride 114 mmol/L (high), BUN 26 mg/dL, Creatinine 0.75 mg/dL, GFR >60, Glucose normal, Calcium low. - Troponin: Elevated but not trending significantly upward. - Lipid panel: Total cholesterol 111 mg/dL, Triglycerides 88 mg/dL, LDL 69 mg/dL, HDL 25 mg/dL. - Urinalysis: Negative for protein and glucose. - Imaging from recent hospitalization: - CTA Chest: Negative for pulmonary embolism, pericardial effusion, and infiltrate. Findings included a slightly enlarged heart and mild bronchial wall thickening. No nodules were seen. Coding Level of Care Code New Pt Prev Care >65yr (26332) TCM High MDM <= 14 days Diagnoses Hospital discharge follow-up Z09 New onset atrial fibrillation I48.91 Uncontrolled hypertension I10 Lower respiratory infection (e.g., bronchitis, pneumonia, pneumonitis, pulmonitis) J22 Nicotine dependence F17.200 Umbilical hernia K42.9 Healthcare maintenance Z00.00 Additional Codes MONALISA-7 Assessment Billing - MONALISA-7 Assessment Tool: MONALISA-7 Assessment 86775 ([id number]) PHQ-9 - 04558 - PHQ-9 Billing: Yes ([id number]) Time Spent (min) 65 Assessment & Plan Assessment & Plan (1) Hospital discharge follow-up: Code(s): Z09 - Encounter for follow-up examination after completed treatment for conditions other than malignant neoplasm Category: Medical (2) New onset atrial fibrillation: Code(s): I48.91 - Unspecified atrial fibrillation Category: Medical Plan: The patient was recently hospitalized for new-onset atrial fibrillation with RVR and spontaneously converted to sinus rhythm. He is currently prescribed Eliquis 5 mg twice a day and metoprolol extended-release 50 mg daily. The patient was counseled on the risks of Eliquis, a blood thinner, including the need to seek emergency care for any head trauma due to bleeding risk. It was emphasized that metoprolol is crucial for controlling his heart rate. Cardiology has ordered an outpatient echocardiogram, stress test, Holter monitor, and a sleep study for further evaluation. The patient was advised that alcohol can precipitate atrial fibrillation and should be consumed with caution. (3) Uncontrolled hypertension: Code(s): I10 - Essential (primary) hypertension Category: Medical Plan: The patient was recently started on amlodipine 5 mg daily for uncontrolled hypertension. Today's blood pressure reading was elevated at 150/76 mmHg. Given that the medication is new and the patient is currently ill, no changes will be made to his antihypertensive regimen at this time. The patient was instructed to monitor his blood pressure at home once daily, 2-3 hours after taking his medications, and to keep a log. He will follow up in one month to re-evaluate his blood pressure control. He was provided with educational materials on lifestyle modifications to help lower blood pressure. (4) Lower respiratory infection (e.g., bronchitis, pneumonia, pneumonitis, pulmonitis): Code(s): J22 - Unspecified acute lower respiratory infection Category: Medical Plan: The patient complains of persistent chest congestion and a cough productive of white sputum following a recent rhinovirus infection. Physical exam revealed rhonchi in the lower lung bales. A course of Augmentin twice daily and Robitussin with Codeine will be prescribed. A repeat chest x-ray is ordered to assess for any underlying pathology. (5) Nicotine dependence: Comment: 57 years 1ppd Code(s): F17.200 - Nicotine dependence, unspecified, uncomplicated Category: Medical Plan: The patient has a 52-xawm-btqi smoking history and expressed a desire to quit smoking. After discussing options including nicotine gum and patches, the patient elected to try the nicotine gum. A prescription for the higher dose of nicotine gum has been sent. Other oral medications like Wellbutrin were mentioned as future options if the gum is not effective. (6) Umbilical hernia: Code(s): K42.9 - Umbilical hernia without obstruction or gangrene Category: Medical Plan: An umbilical hernia was noted on physical examination. The patient was advised that since the hernia is asymptomatic, surgical intervention is not recommended at this time due to the risk of creating further muscle weakness and recurrent hernias. The plan is to monitor the condition. (7) Healthcare maintenance: Code(s): Z00.00 - Encounter for general adult medical examination without abnormal findings Category: Medical Plan: The patient has not had routine medical care in over 10 years. It was noted that his recent hospital CTA of the chest served as a negative lung cancer screening, so no further imaging is needed at this time. Colon cancer screening with colonoscopy or Cologuard was discussed, but the patient declined. Labs have been ordered to screen for diabetes (Hemoglobin A1c), vitamin deficiencies (Magnesium, B12, Vitamin D), thyroid dysfunction (TSH), and prostate cancer (PSA). Plan Plan Patient was informed and verbally consented to the use of an ambient scribe for clinic note documentation during this visit. 1. New Onset Atrial Fibrillation With Rvr The patient was recently hospitalized for new-onset atrial fibrillation with RVR and spontaneously converted to sinus rhythm. He is currently prescribed Eliquis 5 mg twice a day and metoprolol extended-release 50 mg daily. The patient was counseled on the risks of Eliquis, a blood thinner, including the need to seek emergency care for any head trauma due to bleeding risk. It was emphasized that metoprolol is crucial for controlling his heart rate. Cardiology has ordered an outpatient echocardiogram, stress test, Holter monitor, and a sleep study for further evaluation. The patient was advised that alcohol can precipitate atrial fibrillation and should be consumed with caution 2. Hypertension The patient was recently started on amlodipine 5 mg daily for uncontrolled hypertension. Today's blood pressure reading was elevated at 150/76 mmHg. Given that the medication is new and the patient is currently ill, no changes will be made to his antihypertensive regimen at this time. The patient was instructed to monitor his blood pressure at home once daily, 2-3 hours after taking his medications, and to keep a log. He will follow up in one month to re-evaluate his blood pressure control. He was provided with educational materials on lifestyle modifications to help lower blood pressure. 3. Acute Bronchitis The patient complains of persistent chest congestion and a cough productive of white sputum following a recent rhinovirus infection. Physical exam revealed rhonchi in the lower lung bales. A course of Augmentin twice daily and Robitussin with Codeine will be prescribed. A repeat chest x-ray is ordered to assess for any underlying pathology. 4. Tobacco Use Disorder The patient has a 76-lvly-moqn smoking history and expressed a desire to quit smoking. After discussing options including nicotine gum and patches, the patient elected to try the nicotine gum. A prescription for the higher dose of nicotine gum has been sent. Other oral medications like Wellbutrin were mentioned as future options if the gum is not effective. 5. Umbilical Hernia An umbilical hernia was noted on physical examination. The patient was advised that since the hernia is asymptomatic, surgical intervention is not recommended at this time due to the risk of creating further muscle weakness and recurrent hernias. The plan is to monitor the condition. 6. Health Maintenance The patient has not had routine medical care in over 10 years. It was noted that his recent hospital CTA of the chest served as a negative lung cancer screening, so no further imaging is needed at this time. Colon cancer screening with colonoscopy or Cologuard was discussed, but the patient declined. Labs have been ordered to screen for diabetes (Hemoglobin A1c), vitamin deficiencies (Magnesium, B12, Vitamin D), thyroid dysfunction (TSH), and prostate cancer (PSA). I conducted a new patient evaluation and hospital follow-up for the patient's recent admission for new-onset atrial fibrillation with RVR. We reviewed his hospital course, current medications, and his post-discharge status. I explained the importance of compliance with his new medications, particularly the blood thinner Eliquis for stroke prevention and metoprolol for heart rate control. I counseled him on the risk of bleeding with Eliquis and the need to go to the ER for any head injury. Regarding his persistent upper respiratory symptoms, I discussed my concern for a possible lingering bronchitis, and we agreed on a course of antibiotics and cough medicine, along with a follow-up chest x-ray. We discussed his elevated blood pressure and decided not to adjust his medication at this time, pending recovery from his current illness and allowing more time for the new amlodipine to take effect. I instructed him on home blood pressure monitoring. We had a detailed discussion about smoking cessation, and he was receptive to trying nicotine gum, for which I provided a prescription. I reviewed age-appropriate health screenings; I noted his recent chest CTA was sufficient for lung cancer screening, and I respected his decision to decline colon cancer screening after informing him of the options. I also explained that his umbilical hernia does not require surgery unless it becomes symptomatic. I ordered baseline labs and have scheduled a follow-up in one month to review all results and re-evaluate his conditions. Orders: Orders TSH reflex Free T4 Today Z00.00 - Encounter for general adult medical examination without abnormal findings Hemoglobin A1c Today Z00.00 - Encounter for general adult medical examination without abnormal findings Magnesium Today Z00.00 - Encounter for general adult medical examination without abnormal findings Vitamin B12 and Folate Today Z00.00 - Encounter for general adult medical examination without abnormal findings Vitamin D 25-OH Total Today Z00.00 - Encounter for general adult medical examination without abnormal findings PSA,Total (Free>4and<10) Today Z00.00 - Encounter for general adult medical examination without abnormal findings Medications: New amoxicillin-pot clavulanate 875-125 mg 1 tab PO BID 20 tabs 0RF codeine-guaifenesin 10-100 mg/5 mL 5 mL PO Q6H PRN 120 mL 0RF cough nicotine (polacrilex) (Nicorette) 4 mg buccal Q4H PRN 81 ea 3RF nicotine cravings Patient Instructions: - Continue to take your medications as prescribed: amlodipine 5 mg daily for blood pressure, metoprolol ER 50 mg daily to control your heart rate, and Eliquis 5 mg twice daily to prevent blood clots. - Because you are taking Eliquis, a blood thinner, you must go to the emergency room immediately if you fall and hit your head, even if it seems like a minor injury. - Limit how much alcohol you drink, as it can trigger your irregular heartbeat (atrial fibrillation). - Start taking the new antibiotic (Augmentin) twice a day for your chest infection and the Robitussin with Codeine for your cough as prescribed. - Use the nicotine gum as directed to help you quit smoking. - Please get the ordered blood work and chest x-ray done. You can eat and drink normally before the blood test. - Check your blood pressure at home once a day, about 2-3 hours after you take your medications, and write down the numbers. - The cardiology office will call you to schedule several heart tests (ultrasound, stress test, Holter monitor, and a sleep study). It is important that you complete these tests. - We have scheduled a follow-up appointment for you in one month to review your test results and check on your progress.
[2025-05-31 13:46] VITALS: BP 168/88; PULSE 60; RESP 16; TEMP 36.7; O2SAT 96; BMI 28.8
[2025-06-03 13:08] VITALS: BP 150/76
== END 2025-05-31 14:36 | disposition home or self-care (01) ==
LOC: HO.HMCSH 13:10
PROVIDERS: PCP Physician Assistant Medical; Visit Provider Physician Assistant Medical
DX: Z00.00 Encounter for general adult medical examination without abnormal findings (principal); I48.91 Unspecified atrial fibrillation; I10 Essential (primary) hypertension; J22 Unspecified acute lower respiratory infection; F17.200 Nicotine dependence, unspecified, uncomplicated; K42.9 Umbilical hernia without obstruction or gangrene

== ENCOUNTER → 2025-05-31 13:10 | Outpatient (BNVA) | payer BC, SELFPAY | PROVIDERS: PCP Physician Assistant Medical; Visit Provider Physician Assistant Medical | DX: Z00.00 Encounter for general adult medical examination without abnormal findings (principal); I48.91 Unspecified atrial fibrillation; I10 Essential (primary) hypertension; J22 Unspecified acute lower respiratory infection; K42.9 Umbilical hernia without obstruction or gangrene; J20.9 Acute bronchitis, unspecified; F17.210 Nicotine dependence, cigarettes, uncomplicated; Z09 Encounter for follow-up examination after completed treatment for conditions other than malignant neoplasm; Z79.01 Long term (current) use of anticoagulants | CPT/HCPCS: 96127 ==

== ENCOUNTER 2025-06-03 11:55 | Outpatient (REF) | payer BC, SELFPAY ==
[2025-06-03 14:46] LABS: Magnesium 2.5 mg/dL (1.6-2.6)
[2025-06-03 14:49] LABS: PSA,Total (Free>4and<10) 7.13 ng/mL (0.00-4.00)
[2025-06-03 15:01] LABS: Folate 5.7 ng/mL (> or = 4.0); Vitamin B12 469 pg/mL (200-900)
[2025-06-04 12:33] LABS: Free Prostate Spec Ag 1.6 ng/mL; Percent Free Prostate Spec Ag 22 % (calc) (>25)
== END 2025-06-03 11:56 | disposition home or self-care (01) ==
LOC: HO.HMGCLDS 11:55
PROVIDERS: PCP Physician Assistant Medical; Visit Provider Physician Assistant Medical
DX: Z00.00 Encounter for general adult medical examination without abnormal findings (principal); Z12.5 Encounter for screening for malignant neoplasm of prostate; Z13.1 Encounter for screening for diabetes mellitus; Z13.29 Encounter for screening for other suspected endocrine disorder; Z13.21 Encounter for screening for nutritional disorder
CPT/HCPCS: 36415; 82306; 82607; 82746; 83036; 83735; 84153; 84154; 84443